=== PATIENT | female | born 1945 | race Caucasian/White ===

== ENCOUNTER 2020-06-11 17:12 | Inpatient (IN) ==
[2020-06-11 17:45] LABS: Nucleated Red Blood Cells 0.2 /100 WBC (0); Red Cell Distribution Width 15.7 % (11.5-14.5)
[2020-06-11 17:47] LABS: Basophils # 0.1 K/mcL (0.0-0.2); Eosinophils # 0.5 K/mcL (0.0-0.6); Eosinophils % 5.2 %; Hematocrit 18.6 % (35.3-44.9); Immature Granulocytes % 0.7 % (0-4); Lymphocytes # 1.5 K/mcL (0.6-4.6); Lymphocytes % 17.1 %; Mean Corpuscular HGB Conc 27.4 g/dL (31.6-35.5); Mean Corpuscular Hemoglobin 28.3 pg (28.0-33.3); Mean Corpuscular Volume 103.3 fL (83.0-100.0); Mean Platelet Volume 10.1 fL (9.4-12.4); Monocytes # 0.8 K/mcL (0.0-1.3); Monocytes % 9.3 %; Neutrophils # 5.7 K/mcL (1.6-8.9); Platelet Count 326 K/mcL (140-400); Segmented Neutrophils % 66.7 %; White Blood Count 8.6 K/mcL (4.3-11.1)
[2020-06-11 18:04] LABS: BUN/Creatinine Ratio 28 (6-26); Blood Urea Nitrogen 24 mg/dL (8-23); Calcium 9.5 mg/dL (8.6-10.3); Carbon Dioxide 22 mEq/L (23-29); Chloride 107 mEq/L (98-107); Glucose 113 mg/dL (70-105); Osmolality,Calculated 289 (280-300); Potassium 4.6 mEq/L (3.5-5.1); Sodium 137 mEq/L (136-145); eGFR For African Americans > 60 (> 60); eGFR For Non-African Americans > 60 (> 60)
[2020-06-11 18:09] LABS: Troponin I 0.04 ng/mL (< 0.04)
[2020-06-11 18:10] LABS: Anisocytosis 1+ (Not Present); Hemoglobin 5.1 g/dL (11.5-15.4); Hypochromasia Present (Not Present); Polychromasia 1+ (Not Present)
[2020-06-11 18:11] LABS: Platelet Estimate Normal (Normal)
[2020-06-11] MEDS ORDERED: 0.9 % Sodium Chloride 1,000 ML ONE (18:26)
[2020-06-11] MEDS ORDERED: *HR* Dextrose 50 % in Water (Vial) 50 ML VIAL IVP PRN (21:20)
[2020-06-11] MEDS ORDERED: D5% in Water 1,000 ML IVC PRN (21:20)
[2020-06-11] MEDS ORDERED: Dextrose Gel 15 GM/37.5 ML TUBE PO PRN ×2 (21:20)
[2020-06-11] MEDS ORDERED: Simethicone 80 MG TAB.CHEW PO PRN (21:23)
[2020-06-11] MEDS ORDERED: Acetaminophen 325 MG TABLET PO PRN (21:24)
[2020-06-11] MEDS ORDERED: Ondansetron 4 MG/2 ML VIAL IVP PRN (21:24)
[2020-06-11] MEDS ORDERED: Naloxone 0.4 MG/ML INJ IVP PRN (21:24)
[2020-06-11] MEDS ORDERED: 0.9 % Sodium Chloride 250 ML ONE (22:41)
[2020-06-11] MEDS: Famotidine 20 MG/2 ML VIAL IVP SCH (23:21)
[2020-06-11] MEDS: Insulin LISPRO 300 UNITS/3 ML VIAL SUBQ SCH (23:24)
[2020-06-11 23:43] LABS: Bilirubin,Urine Negative (Negative); Blood,Urine Negative (Negative); Clarity,Urine Clear (Clear); Color,Urine Yellow (Yellow); Glucose,Urine (UA) Normal (Normal); Ketones,Urine Negative (Negative); Leukocyte Esterase,Urine Moderate (Negative); Mucus,Urine Few per lpf (None-Few); Nitrite,Urine Negative (Negative); PH,Urine 6.5 pH Units (5.0-8.0); Protein,Urine Trace mg/dL (Neg-Trace); Specific Gravity,Urine 1.022 (1.010-1.025); Squamous Epithelial Cell,Urine Few per hpf (None-Few); Urobilinogen,Urine Normal (Normal); WBC,Urine 30-50 per hpf (0-3)
[2020-06-12 01:25] LABS: Hematocrit 24.3 % (35.3-44.9); Mean Corpuscular HGB Conc 29.6 g/dL (31.6-35.5); Mean Corpuscular Hemoglobin 27.7 pg (28.0-33.3); Mean Platelet Volume 10.2 fL (9.4-12.4); Platelet Count 263 K/mcL (140-400); Red Cell Distribution Width 16.7 % (11.5-14.5); White Blood Count 8.3 K/mcL (4.3-11.1)
[2020-06-12 01:27] LABS: Hemoglobin 7.2 g/dL (11.5-15.4); Mean Corpuscular Volume 93.5 fL (83.0-100.0)
[2020-06-12 01:28] LABS: INR 1.2
[2020-06-12 01:31] LABS: Activated Partial Thrombo Time 25.4 Seconds (26.0-36.0)
[2020-06-12] MEDS: Famotidine 20 MG/2 ML VIAL IVP SCH ×3 (01:31→17:25)
[2020-06-12 01:46] LABS: % Iron Saturation 4 % (15-50); Iron 19 mcg/dL (50-170); Transferrin 317 mg/dL (203-362)
[2020-06-12 01:51] LABS: BUN/Creatinine Ratio 30 (6-26); Blood Urea Nitrogen 21 mg/dL (8-23); Calcium 9.1 mg/dL (8.6-10.3); Carbon Dioxide 20 mEq/L (23-29); Chloride 109 mEq/L (98-107); Chol/HDL Ratio 2.2 (0-4.9); Cholesterol 84 mg/dL (< 200); Glucose 85 mg/dL (70-105); HDL Cholesterol 38 mg/dL (40-59); LDL Cholesterol,Calculated 23 mg/dL (< 100); Osmolality,Calculated 288 (280-300); Potassium 4.2 mEq/L (3.5-5.1); Sodium 138 mEq/L (136-145); Triglycerides 114 mg/dL (< 150); Troponin I 0.04 ng/mL (< 0.04); eGFR For African Americans > 60 (> 60); eGFR For Non-African Americans > 60 (> 60)
[2020-06-12 02:04] LABS: Ferritin 19 ng/mL (10-120)
[2020-06-12 02:10] LABS: Folate 18.1 ng/mL (3.0-16.0)
[2020-06-12] MEDS ORDERED: Furosemide 20 MG TABLET PO PRN (08:32)
[2020-06-12] MEDS ORDERED: Iron Sucrose Complex 400 MG in 0.9 % Sodium Chloride 250 ML IVPB ONE (08:33)
[2020-06-12 08:38] LABS: Estimated Average Glucose 88 mg/dl; Hemoglobin A1C 4.7 %
[2020-06-12] MEDS ORDERED: WHEAT DEXTRIN PO SCH (09:00)
[2020-06-12] MEDS: lisinopriL 5 MG TABLET PO SCH (09:15)
[2020-06-12] MEDS: carvediloL 6.25 MG TABLET PO SCH ×2 (09:15→17:14)
[2020-06-12] MEDS: Aspirin Enteric Coated 81 MG Tablet PO SCH (09:15)
[2020-06-12] MEDS: Insulin LISPRO 300 UNITS/3 ML VIAL SUBQ SCH ×4 (09:16→21:20)
[2020-06-12 09:25] LABS: Hematocrit 26.6 % (35.3-44.9); Hemoglobin 8.1 g/dL (11.5-15.4)
[2020-06-12 10:52] LABS: Immature Reticulocyte % 32.9 % (11.0-38.0); Retculocyte # 0.22 M/mcL (0.05-0.10); Reticulocyte % 8.2 % (1.6-2.8)
[2020-06-12 11:13] LABS: Albumin 3.8 g/dL (3.5-5.7); Albumin/Globulin Ratio 1.8 (1.1-2.2); Bilirubin,Direct 0.3 mg/dL (0.0-0.2); Bilirubin,Indirect 1.2 mg/dL (0.0-1.0); Bilirubin,Total 1.5 mg/dL (0.3-1.0); Globulin 2.1 g/dL (2.4-3.5); Total Protein 5.9 g/dL (6.4-8.9)
[2020-06-12] MEDS: Furosemide 20 MG TABLET PO SCH (12:58)
[2020-06-13 03:25] LABS: Hematocrit 24.7 % (35.3-44.9); Hemoglobin 7.5 g/dL (11.5-15.4); Mean Corpuscular HGB Conc 30.4 g/dL (31.6-35.5); Mean Corpuscular Hemoglobin 28.2 pg (28.0-33.3); Mean Corpuscular Volume 92.9 fL (83.0-100.0); Platelet Count 265 K/mcL (140-400); Red Blood Count 2.66 M/mcL (3.82-4.97); Red Cell Distribution Width 16.8 % (11.5-14.5); White Blood Count 7.8 K/mcL (4.3-11.1)
[2020-06-13] MEDS: Famotidine 20 MG/2 ML VIAL IVP SCH ×2 (05:14→16:55)
[2020-06-13] MEDS: Insulin LISPRO 300 UNITS/3 ML VIAL SUBQ SCH ×3 (07:40→16:47)
[2020-06-13] MEDS: Aspirin Enteric Coated 81 MG Tablet PO SCH (07:43)
[2020-06-13] MEDS: Furosemide 20 MG TABLET PO SCH (07:43)
[2020-06-13] MEDS: carvediloL 6.25 MG TABLET PO SCH ×2 (07:43→16:58)
[2020-06-13] MEDS: lisinopriL 5 MG TABLET PO SCH (07:43)
[2020-06-13] MEDS ORDERED: Cyanocobalamin (B-12) 1,000 MCG TABLET PO SCH (09:00)
[2020-06-13 18:52] VITALS: BP 95/57
[2020-06-13 20:11] LABS: Adenovirus Not Detected (Not Detect); Bordetella Pertussis Not Detected (Not Detect); Chlamydophila pneumoniae Not Detected (Not Detect); Coronavirus 229E Not Detected (Not Detect); Coronavirus HKU1 Not Detected (Not Detect); Coronavirus NL63 Not Detected (Not Detect); Coronavirus OC43 Not Detected (Not Detect); Human Metapneumovirus Not Detected (Not Detect); Human Rhinovirus/Enterovirus Not Detected (Not Detect); Influenza A Subtype 2009 H1 Not Detected (Not Detect); Influenza B Not Detected (Not Detect); Mycoplasma pneumoniae Not Detected (Not Detect); Parainfluenza Virus 1 Not Detected (Not Detect); Parainfluenza Virus 2 Not Detected (Not Detect); Parainfluenza Virus 3 Not Detected (Not Detect); Parainfluenza Virus 4 Not Detected (Not Detect); Respiratory Syncytial Virus Not Detected (Not Detect); SARS-CoV-2 Not Detected (Not Detect)
== END 2020-06-13 19:14 | disposition critical access hospital (66) | DRG 811 ==
LOC: 3ANU 17:12 → EMEROOARM 17:12 → SUATTDRO 20:26 → 3ANU 21:41
PROVIDERS: ADMIT Student in an Organized Health Care Education/Training Program; ATTEND Internal Medicine

== ENCOUNTER 2021-03-06 01:10 | Inpatient (IN) ==
[2021-03-06] MEDS ORDERED: Acetaminophen 325 MG TABLET PO PRN ×2 (03:58→04:15)
[2021-03-06] MEDS ORDERED: Ondansetron 4 MG/2 ML VIAL IVP PRN (03:58)
[2021-03-06] MEDS ORDERED: Naloxone 0.4 MG/ML INJ IVP PRN (03:58)
[2021-03-06] MEDS ORDERED: D5% in Water 1,000 ML IVC PRN (04:08)
[2021-03-06] MEDS ORDERED: *HR* Dextrose 50 % in Water (Syg) 50 ML SYRINGE IVP PRN (04:08)
[2021-03-06] MEDS ORDERED: Dextrose Gel 15 GM/37.5 ML TUBE PO PRN ×2 (04:08)
[2021-03-06] MEDS ORDERED: Furosemide 20 MG TABLET PO PRN (04:17)
[2021-03-06] MEDS ORDERED: polyethylene glycoL 3350 17 GM POWD.PACK PO PRN (04:19)
[2021-03-06 05:09] LABS: Basophils # 0.1 K/mcL (0.0-0.2); Basophils % 1.1 %; Eosinophils # 0.3 K/mcL (0.0-0.6); Eosinophils % 4.8 %; Hematocrit 23.1 % (35.3-44.9); Immature Granulocytes % 0.7 % (0-4); Lymphocytes # 1.2 K/mcL (0.6-4.6); Lymphocytes % 16.3 %; Mean Corpuscular HGB Conc 30.3 g/dL (31.6-35.5); Mean Corpuscular Hemoglobin 28.6 pg (28.0-33.3); Mean Corpuscular Volume 94.3 fL (83.0-100.0); Mean Platelet Volume 10.8 fL (9.4-12.4); Monocytes # 0.5 K/mcL (0.0-1.3); Monocytes % 7.3 %; Nucleated Red Blood Cells 0.3 /100 WBC (0); Platelet Count 219 K/mcL (140-400); Red Blood Count 2.45 M/mcL (3.82-4.97); Red Cell Distribution Width 16.4 % (11.5-14.5); Segmented Neutrophils % 69.8 %; White Blood Count 7.1 K/mcL (4.3-11.1)
[2021-03-06 05:17] LABS: Alanine Aminotransferase 11 Units/L (7-52); Albumin/Globulin Ratio 1.6 (1.1-2.2); Alkaline Phosphatase 42 Units/L (34-104); Aspartate Amino Transferase 16 Units/L (13-39); BUN/Creatinine Ratio 45 (6-26); Bilirubin,Total 0.6 mg/dL (0.3-1.0); Blood Urea Nitrogen 33 mg/dL (8-23); Calcium 9.4 mg/dL (8.6-10.3); Carbon Dioxide 22 mEq/L (23-29); Chloride 108 mEq/L (98-107); Globulin 2.5 g/dL (2.4-3.5); Glucose 95 mg/dL (70-105); Osmolality,Calculated 297 (280-300); Potassium 4.1 mEq/L (3.5-5.1); Sodium 140 mEq/L (136-145); Total Protein 6.5 g/dL (6.4-8.9); eGFR For African Americans > 60 (> 60); eGFR For Non-African Americans > 60 (> 60)
[2021-03-06 05:18] LABS: % Iron Saturation 20 % (15-50); Iron 77 mcg/dL (50-170); Transferrin 279 mg/dL (203-362)
[2021-03-06 05:34] LABS: Ferritin 55 ng/mL (10-120)
[2021-03-06 05:40] LABS: Folate 13.9 ng/mL (3.0-16.0)
[2021-03-06 06:02] LABS: Estimated Average Glucose 126 mg/dl
[2021-03-06 06:19] LABS: Hematocrit 22.9 % (35.3-44.9)
[2021-03-06] MEDS: Insulin LISPRO 300 UNITS/3 ML VIAL SUBQ SCH ×4 (08:30→20:28)
[2021-03-06] MEDS: Sucralfate 1 GM TABLET PO SCH (08:34)
[2021-03-06] MEDS: lisinopriL 5 MG TABLET PO SCH (08:34)
[2021-03-06] MEDS: carvediloL 6.25 MG TABLET PO SCH ×2 (08:34→17:00)
[2021-03-06] MEDS ORDERED: Famotidine 20 MG TABLET PO SCH (09:00)
[2021-03-06] MEDS: Levalbuterol Neb 1.25 MG/3 ML IH SCH ×3 (10:24→22:23)
[2021-03-06] MEDS ORDERED: Cyanocobalamin (B-12) 1,000 MCG/ML VIAL SQ ONE (11:00)
[2021-03-06 13:05] LABS: Hematocrit 21.3 % (35.3-44.9); Hemoglobin 6.7 g/dL (11.5-15.4)
[2021-03-06] MEDS ORDERED: *HR* Propofol 200 MG/20 ML VIAL IVP ONE (14:51)
[2021-03-06] MEDS ORDERED: Lidocaine -MPF 2% 5 ML VIAL ONE (14:51)
[2021-03-06] MEDS: cefTRIAXone 1,000 MG in Water for inj. (sterile) 10 ML IVP SCH (16:59)
[2021-03-06] MEDS: Pantoprazole 40 MG VIAL IVP SCH (17:00)
[2021-03-06] MEDS ORDERED: 0.9 % Sodium Chloride 250 ML ONE (17:06)
[2021-03-06] MEDS ORDERED: cefTRIAXone 2,000 MG in 0.9 % Sodium Chloride Mini Bag 100 ML IVPB SCH (18:00)
[2021-03-06 23:32] LABS: Basophils # 0.1 K/mcL (0.0-0.2); Basophils % 0.9 %; Eosinophils # 0.3 K/mcL (0.0-0.6); Hematocrit 26.3 % (35.3-44.9); Hemoglobin 8.2 g/dL (11.5-15.4); Immature Granulocytes % 0.6 % (0-4); Lymphocytes # 1.3 K/mcL (0.6-4.6); Lymphocytes % 15.6 %; Mean Corpuscular HGB Conc 31.2 g/dL (31.6-35.5); Mean Corpuscular Hemoglobin 29.2 pg (28.0-33.3); Mean Corpuscular Volume 93.6 fL (83.0-100.0); Mean Platelet Volume 10.2 fL (9.4-12.4); Monocytes # 0.9 K/mcL (0.0-1.3); Monocytes % 11.1 %; Neutrophils # 5.8 K/mcL (1.6-8.9); Nucleated Red Blood Cells 0.4 /100 WBC (0); Platelet Count 218 K/mcL (140-400); Red Blood Count 2.81 M/mcL (3.82-4.97); Red Cell Distribution Width 16.6 % (11.5-14.5); Segmented Neutrophils % 67.8 %; White Blood Count 8.5 K/mcL (4.3-11.1)
[2021-03-07 02:42] LABS: Hematocrit 25.3 % (35.3-44.9); Hemoglobin 8.2 g/dL (11.5-15.4); Mean Corpuscular HGB Conc 32.4 g/dL (31.6-35.5); Mean Corpuscular Volume 92.7 fL (83.0-100.0); Mean Platelet Volume 10.6 fL (9.4-12.4); Platelet Count 234 K/mcL (140-400); Red Blood Count 2.73 M/mcL (3.82-4.97); Red Cell Distribution Width 17.1 % (11.5-14.5); White Blood Count 9.1 K/mcL (4.3-11.1)
[2021-03-07 02:53] LABS: BUN/Creatinine Ratio 35 (6-26); Blood Urea Nitrogen 28 mg/dL (8-23); Calcium 9.2 mg/dL (8.6-10.3); Carbon Dioxide 23 mEq/L (23-29); Chloride 104 mEq/L (98-107); Glucose 105 mg/dL (70-105); Osmolality,Calculated 286 (280-300); Potassium 4.4 mEq/L (3.5-5.1); Sodium 135 mEq/L (136-145); eGFR For African Americans > 60 (> 60); eGFR For Non-African Americans > 60 (> 60)
[2021-03-07] MEDS: Levalbuterol Neb 1.25 MG/3 ML IH SCH ×4 (04:31→20:57)
[2021-03-07] MEDS: Pantoprazole 40 MG VIAL IVP SCH ×2 (05:31→18:26)
[2021-03-07] MEDS: Insulin LISPRO 300 UNITS/3 ML VIAL SUBQ SCH ×4 (08:32→20:40)
[2021-03-07] MEDS: lisinopriL 5 MG TABLET PO SCH (08:49)
[2021-03-07] MEDS: carvediloL 6.25 MG TABLET PO SCH ×2 (08:49→18:25)
[2021-03-07] MEDS: Sucralfate 1 GM TABLET PO SCH (08:49)
[2021-03-07] MEDS: cefTRIAXone 1,000 MG in Water for inj. (sterile) 10 ML IVP SCH (18:26)
[2021-03-08 01:10] LABS: Hematocrit 24.3 % (35.3-44.9); Hemoglobin 7.5 g/dL (11.5-15.4); Mean Corpuscular HGB Conc 30.9 g/dL (31.6-35.5); Mean Corpuscular Hemoglobin 29.4 pg (28.0-33.3); Mean Corpuscular Volume 95.3 fL (83.0-100.0); Mean Platelet Volume 10.5 fL (9.4-12.4); Platelet Count 221 K/mcL (140-400); Red Blood Count 2.55 M/mcL (3.82-4.97); Red Cell Distribution Width 17.6 % (11.5-14.5); White Blood Count 8.3 K/mcL (4.3-11.1)
[2021-03-08 01:32] LABS: BUN/Creatinine Ratio 25 (6-26); Blood Urea Nitrogen 21 mg/dL (8-23); Calcium 8.6 mg/dL (8.6-10.3); Carbon Dioxide 25 mEq/L (23-29); Chloride 105 mEq/L (98-107); Glucose 118 mg/dL (70-105); Osmolality,Calculated 286 (280-300); Potassium 4.2 mEq/L (3.5-5.1); Sodium 136 mEq/L (136-145); eGFR For African Americans > 60 (> 60); eGFR For Non-African Americans > 60 (> 60)
[2021-03-08] MEDS: Levalbuterol Neb 1.25 MG/3 ML IH SCH ×2 (04:40→07:38)
[2021-03-08] MEDS: Pantoprazole 40 MG VIAL IVP SCH (06:01)
[2021-03-08] MEDS: Sucralfate 1 GM TABLET PO SCH (07:57)
[2021-03-08] MEDS: carvediloL 6.25 MG TABLET PO SCH (07:57)
[2021-03-08] MEDS: lisinopriL 5 MG TABLET PO SCH (07:57)
[2021-03-08 10:16] VITALS: BP 160/72; PULSE 83; TEMP 98.3; O2SAT 93
[2021-03-08] MEDS ORDERED: Pantoprazole 40 MG VIAL IVP SCH (18:00)
== END 2021-03-08 14:20 | disposition home health service (06) | DRG 812 ==
LOC: 3ANU → SUATTDRO 02:53
PROVIDERS: ADMIT Internal Medicine; ATTEND Hospitalist

== ENCOUNTER 2021-07-17 01:17 | Inpatient (IN) ==
[2021-07-17] MEDS ORDERED: Furosemide 20 MG/2 ML VIAL IVP ONE (01:23)
[2021-07-17 02:30] LABS: Basophils # 0.1 K/mcL (0.0-0.2); Basophils % 0.8 %; Eosinophils # 0.4 K/mcL (0.0-0.6); Eosinophils % 3.2 %; Hematocrit 26.4 % (35.3-44.9); Hemoglobin 8.2 g/dL (11.5-15.4); Immature Granulocytes % 0.6 % (0-4); Lymphocytes # 1.4 K/mcL (0.6-4.6); Lymphocytes % 12.7 %; Mean Corpuscular HGB Conc 31.1 g/dL (31.6-35.5); Mean Corpuscular Volume 96.7 fL (83.0-100.0); Mean Platelet Volume 10.2 fL (9.4-12.4); Monocytes # 1.3 K/mcL (0.0-1.3); Monocytes % 11.4 %; Neutrophils # 7.9 K/mcL (1.6-8.9); Platelet Count 325 K/mcL (140-400); Red Blood Count 2.73 M/mcL (3.82-4.97); Red Cell Distribution Width 17.5 % (11.5-14.5); Segmented Neutrophils % 71.3 %; White Blood Count 11.1 K/mcL (4.3-11.1)
[2021-07-17 02:40] LABS: INR 1.4; Prothrombin Time 15.9 Seconds (9.4-12.1)
[2021-07-17 02:43] LABS: Activated Partial Thrombo Time 36.2 Seconds (26.0-36.0)
[2021-07-17 02:50] LABS: Bacteria,Urine Few per hpf (None-Few); Bilirubin,Urine Negative (Negative); Blood,Urine Large (Negative); Clarity,Urine Turbid (Clear); Color,Urine Yellow (Yellow); Glucose,Urine (UA) Normal (Normal); Hyaline Casts,Urine Many per lpf (None Seen); Ketones,Urine Negative (Negative); Leukocyte Esterase,Urine Trace (Negative); Mucus,Urine Few per lpf (None-Few); Nitrite,Urine Negative (Negative); Protein,Urine >=300 mg/dL (Neg-Trace); RBC,Urine TNTC per hpf (0-3); Specific Gravity,Urine 1.015 (1.010-1.025); Squamous Epithelial Cell,Urine Few per hpf (None-Few); Urobilinogen,Urine Normal (Normal); WBC,Urine 15-30 per hpf (0-3)
[2021-07-17] MEDS ORDERED: cefTRIAXone 1,000 MG in Water for inj. (sterile) 10 ML IVP ONE (02:52)
[2021-07-17 03:01] LABS: BUN/Creatinine Ratio 37 (6-26); Blood Urea Nitrogen 39 mg/dL (8-23); Calcium 8.5 mg/dL (8.6-10.3); Carbon Dioxide 21 mEq/L (23-29); Chloride 102 mEq/L (98-107); Glucose 126 mg/dL (70-105); Lipase 24 Units/L (11-82); Osmolality,Calculated 287 (280-300); Potassium 4.6 mEq/L (3.5-5.1); Sodium 133 mEq/L (136-145); Troponin I 0.06 ng/mL (< 0.04); eGFR For African Americans > 60 (> 60); eGFR For Non-African Americans 51 (> 60)
[2021-07-17] MEDS ORDERED: Ibuprofen 400 MG TABLET PO PRN (04:14)
[2021-07-17] MEDS ORDERED: Ondansetron ODT 4 MG TAB.RAPDIS SL PRN (04:14)
[2021-07-17] MEDS ORDERED: Naloxone 0.4 MG/ML INJ IVP PRN (04:14)
[2021-07-17] MEDS ORDERED: Acetaminophen 325 MG TABLET PO PRN (04:14)
[2021-07-17] MEDS ORDERED: Nitroglycerin 0.4 MG TAB.SUBL SL STA (04:25)
[2021-07-17] MEDS: *HR* Enoxaparin 40 MG/0.4 ML SYRINGE SQ SCH (06:36)
[2021-07-17 07:49] LABS: % Iron Saturation 11 % (15-50); Iron 32 mcg/dL (50-170); Transferrin 209 mg/dL (203-362)
[2021-07-17] MEDS ORDERED: Furosemide 20 MG/2 ML VIAL IVP SCH (08:00)
[2021-07-17 08:06] LABS: Ferritin 443 ng/mL (10-120)
[2021-07-17 08:41] LABS: Folate > 22.3 ng/mL (3.0-16.0); Vitamin B12 714 pg/mL (250-1100)
[2021-07-17] MEDS: lisinopriL 5 MG TABLET PO SCH (08:52)
[2021-07-17] MEDS: Aspirin Enteric Coated 81 MG Tablet PO SCH (08:52)
[2021-07-17] MEDS: Famotidine 20 MG TABLET PO SCH (08:52)
[2021-07-17] MEDS: carvediloL 6.25 MG TABLET PO SCH ×2 (08:52→20:31)
[2021-07-17] MEDS: Furosemide 40 MG/4 ML VIAL IV SCH ×2 (08:52→16:52)
[2021-07-17 09:28] LABS: Sodium, Urine 50.6 mEq/L
[2021-07-17] MEDS: FluocinoNIDE 0.05% CRM 15 GM TUBE TP SCH ×2 (09:34→20:34)
[2021-07-18 01:21] LABS: Calcium 8.4 mg/dL (8.6-10.3); Potassium 4.4 mEq/L (3.5-5.1)
[2021-07-18] MEDS: *HR* Enoxaparin 40 MG/0.4 ML SYRINGE SQ SCH (06:36)
[2021-07-18] MEDS ORDERED: Furosemide 40 MG/4 ML VIAL IV SCH (09:00)
[2021-07-18] MEDS: cefTRIAXone 1,000 MG in 0.9 % Sodium Chloride Mini Bag 100 ML IVPB SCH (09:00)
[2021-07-18] MEDS: carvediloL 6.25 MG TABLET PO SCH ×2 (09:04→16:51)
[2021-07-18] MEDS: Aspirin Enteric Coated 81 MG Tablet PO SCH (09:04)
[2021-07-18] MEDS: lisinopriL 5 MG TABLET PO SCH (09:04)
[2021-07-18] MEDS: Famotidine 20 MG TABLET PO SCH (09:04)
[2021-07-18] MEDS: FluocinoNIDE 0.05% CRM 15 GM TUBE TP SCH ×2 (09:09→20:32)
[2021-07-18] MEDS: Ipratropium/Albuterol Neb 3 ML IH PRN (10:59)
[2021-07-18] MEDS ORDERED: Perflutren Lipid Microsphere 1.3 ML in 0.9 % Sodium Chloride 8.7 ML IVP PRN (12:07)
[2021-07-18] MEDS ORDERED: *HR* Labetalol 20 MG/4 ML SYRINGE IVP PRN (17:01)
[2021-07-18] MEDS: Gabapentin 100 MG CAPSULE PO SCH (20:32)
[2021-07-19 05:01] LABS: Basophils # 0.1 K/mcL (0.0-0.2); Basophils % 0.9 %; Eosinophils # 0.3 K/mcL (0.0-0.6); Eosinophils % 3.4 %; Hematocrit 25.6 % (35.3-44.9); Hemoglobin 7.5 g/dL (11.5-15.4); Immature Granulocytes % 0.6 % (0-4); Lymphocytes # 1.4 K/mcL (0.6-4.6); Lymphocytes % 14.3 %; Mean Corpuscular HGB Conc 29.3 g/dL (31.6-35.5); Mean Corpuscular Hemoglobin 28.4 pg (28.0-33.3); Mean Platelet Volume 10.2 fL (9.4-12.4); Monocytes # 1.1 K/mcL (0.0-1.3); Monocytes % 10.8 %; Neutrophils # 6.8 K/mcL (1.6-8.9); Nucleated Red Blood Cells 0.2 /100 WBC (0); Platelet Count 317 K/mcL (140-400); Red Blood Count 2.64 M/mcL (3.82-4.97); Red Cell Distribution Width 17.7 % (11.5-14.5); White Blood Count 9.7 K/mcL (4.3-11.1)
[2021-07-19 05:54] LABS: Complement C3 133 mg/dL (87-200)
[2021-07-19 05:56] LABS: Albumin 2.9 g/dL (3.5-5.7); Bilirubin,Direct 0.1 mg/dL (0.0-0.2); Bilirubin,Indirect 0.5 mg/dL (0.0-1.0); Bilirubin,Total 0.6 mg/dL (0.3-1.0); Calcium 8.3 mg/dL (8.6-10.3); Globulin 2.8 g/dL (2.4-3.5); Magnesium 1.8 mg/dL (1.6-2.6); Potassium 5.1 mEq/L (3.5-5.1); Total Protein 5.7 g/dL (6.4-8.9)
[2021-07-19] MEDS: *HR* Enoxaparin 40 MG/0.4 ML SYRINGE SQ SCH (06:07)
[2021-07-19 06:26] LABS: Hepatitis B Surface Antigen Nonreactive (Nonreactive)
[2021-07-19 06:55] LABS: Hepatitis C Virus Antibody Nonreactive (Nonreactive)
[2021-07-19 06:56] LABS: Hepatitis A Antibody IgM Nonreactive (Nonreactive)
[2021-07-19] MEDS: lisinopriL 5 MG TABLET PO SCH (07:44)
[2021-07-19] MEDS: Aspirin Enteric Coated 81 MG Tablet PO SCH (07:44)
[2021-07-19] MEDS: Famotidine 20 MG TABLET PO SCH ×2 (07:44→19:41)
[2021-07-19] MEDS: carvediloL 6.25 MG TABLET PO SCH ×2 (07:44→16:50)
[2021-07-19] MEDS: FluocinoNIDE 0.05% CRM 15 GM TUBE TP SCH ×2 (07:45→19:43)
[2021-07-19] MEDS: cefTRIAXone 1,000 MG in 0.9 % Sodium Chloride Mini Bag 100 ML IVPB SCH (07:45)
[2021-07-19] MEDS: Ipratropium/Albuterol Neb 3 ML IH PRN (10:51)
[2021-07-19] MEDS: Gabapentin 100 MG CAPSULE PO SCH (19:41)
[2021-07-20 01:11] LABS: Basophils # 0.1 K/mcL (0.0-0.2); Basophils % 0.8 %; Eosinophils # 0.3 K/mcL (0.0-0.6); Eosinophils % 3.4 %; Hematocrit 24.9 % (35.3-44.9); Hemoglobin 7.6 g/dL (11.5-15.4); Immature Granulocytes % 0.5 % (0-4); Lymphocytes # 1.2 K/mcL (0.6-4.6); Lymphocytes % 12.8 %; Mean Corpuscular HGB Conc 30.5 g/dL (31.6-35.5); Mean Corpuscular Hemoglobin 29.5 pg (28.0-33.3); Mean Corpuscular Volume 96.5 fL (83.0-100.0); Mean Platelet Volume 9.9 fL (9.4-12.4); Monocytes # 0.9 K/mcL (0.0-1.3); Monocytes % 9.5 %; Neutrophils # 6.8 K/mcL (1.6-8.9); Platelet Count 286 K/mcL (140-400); Red Blood Count 2.58 M/mcL (3.82-4.97); Red Cell Distribution Width 17.6 % (11.5-14.5); White Blood Count 9.3 K/mcL (4.3-11.1)
[2021-07-20 01:30] LABS: Magnesium 1.8 mg/dL (1.6-2.6); Potassium 4.7 mEq/L (3.5-5.1)
[2021-07-20] MEDS: *HR* Enoxaparin 40 MG/0.4 ML SYRINGE SQ SCH (04:24)
[2021-07-20] MEDS: Famotidine 20 MG TABLET PO SCH ×2 (08:19→21:51)
[2021-07-20] MEDS: carvediloL 6.25 MG TABLET PO SCH ×2 (08:19→16:45)
[2021-07-20] MEDS: Aspirin Enteric Coated 81 MG Tablet PO SCH (08:19)
[2021-07-20] MEDS: Pantoprazole 40 MG VIAL IVP SCH (08:24)
[2021-07-20] MEDS: FluocinoNIDE 0.05% CRM 15 GM TUBE TP SCH ×2 (08:25→21:52)
[2021-07-20] MEDS: Gabapentin 100 MG CAPSULE PO SCH (21:51)
[2021-07-20] MEDS: Ipratropium/Albuterol Neb 3 ML IH PRN (22:12)
[2021-07-21 01:54] LABS: Basophils # 0.1 K/mcL (0.0-0.2); Basophils % 0.6 %; Eosinophils # 0.3 K/mcL (0.0-0.6); Eosinophils % 2.9 %; Hematocrit 24.9 % (35.3-44.9); Hemoglobin 7.6 g/dL (11.5-15.4); Immature Granulocytes % 0.6 % (0-4); Lymphocytes # 1.1 K/mcL (0.6-4.6); Lymphocytes % 10.9 %; Mean Corpuscular HGB Conc 30.5 g/dL (31.6-35.5); Mean Corpuscular Hemoglobin 29.2 pg (28.0-33.3); Mean Corpuscular Volume 95.8 fL (83.0-100.0); Mean Platelet Volume 10.1 fL (9.4-12.4); Monocytes # 0.9 K/mcL (0.0-1.3); Monocytes % 8.9 %; Neutrophils # 7.7 K/mcL (1.6-8.9); Platelet Count 299 K/mcL (140-400); Red Cell Distribution Width 17.2 % (11.5-14.5); Segmented Neutrophils % 76.1 %; White Blood Count 10.1 K/mcL (4.3-11.1)
[2021-07-21 02:13] LABS: Calcium 8.2 mg/dL (8.6-10.3); Magnesium 1.7 mg/dL (1.6-2.6)
[2021-07-21] MEDS: *HR* Enoxaparin 40 MG/0.4 ML SYRINGE SQ SCH (06:36)
[2021-07-21] MEDS: Ipratropium/Albuterol Neb 3 ML IH PRN ×2 (07:17→19:39)
[2021-07-21] MEDS: Famotidine 20 MG TABLET PO SCH ×2 (08:58→20:43)
[2021-07-21] MEDS: Isosorbide MONOnitrate (24 HR) 30 MG TAB.ER.24H PO SCH (08:58)
[2021-07-21] MEDS: carvediloL 6.25 MG TABLET PO SCH ×2 (08:59→17:04)
[2021-07-21] MEDS: Pantoprazole 40 MG VIAL IVP SCH (08:59)
[2021-07-21] MEDS: Aspirin Enteric Coated 81 MG Tablet PO SCH (08:59)
[2021-07-21] MEDS: FluocinoNIDE 0.05% CRM 15 GM TUBE TP SCH ×2 (09:02→20:43)
[2021-07-21] MEDS: lisinopriL 5 MG TABLET PO SCH (09:09)
[2021-07-21 10:34] LABS: ANA IgG by ELISA NONE DETECTED (None Detected); Serine Protease-3 Antibody 0 AU/mL (0-19)
[2021-07-21] MEDS: Gabapentin 100 MG CAPSULE PO SCH (20:43)
[2021-07-22 05:56] LABS: Basophils # 0.1 K/mcL (0.0-0.2); Basophils % 0.8 %; Eosinophils # 0.3 K/mcL (0.0-0.6); Eosinophils % 3.4 %; Hematocrit 24.4 % (35.3-44.9); Hemoglobin 7.2 g/dL (11.5-15.4); Immature Granulocytes % 0.7 % (0-4); Lymphocytes # 1.3 K/mcL (0.6-4.6); Lymphocytes % 13.1 %; Mean Corpuscular HGB Conc 29.5 g/dL (31.6-35.5); Mean Corpuscular Hemoglobin 28.5 pg (28.0-33.3); Mean Corpuscular Volume 96.4 fL (83.0-100.0); Mean Platelet Volume 10.2 fL (9.4-12.4); Monocytes % 9.8 %; Neutrophils # 7.2 K/mcL (1.6-8.9); Platelet Count 288 K/mcL (140-400); Red Blood Count 2.53 M/mcL (3.82-4.97); Red Cell Distribution Width 17.1 % (11.5-14.5); Segmented Neutrophils % 72.2 %
[2021-07-22 06:07] LABS: Calcium 8.2 mg/dL (8.6-10.3); Magnesium 1.8 mg/dL (1.6-2.6); Potassium 5.7 mEq/L (3.5-5.1)
[2021-07-22] MEDS: Ipratropium/Albuterol Neb 3 ML IH PRN ×2 (07:42→20:23)
[2021-07-22] MEDS: Pantoprazole 40 MG VIAL IVP SCH (08:11)
[2021-07-22] MEDS: carvediloL 6.25 MG TABLET PO SCH ×2 (08:11→16:31)
[2021-07-22] MEDS: FluocinoNIDE 0.05% CRM 15 GM TUBE TP SCH ×2 (08:11→22:06)
[2021-07-22] MEDS: Isosorbide MONOnitrate (24 HR) 30 MG TAB.ER.24H PO SCH (08:12)
[2021-07-22] MEDS: Aspirin Enteric Coated 81 MG Tablet PO SCH (08:12)
[2021-07-22] MEDS: hydrALAZINE 10 MG TABLET PO SCH ×3 (08:12→22:06)
[2021-07-22] MEDS: Famotidine 20 MG TABLET PO SCH ×2 (08:12→22:06)
[2021-07-22] MEDS: Gabapentin 100 MG CAPSULE PO SCH (22:06)
[2021-07-23 02:10] LABS: Basophils # 0.1 K/mcL (0.0-0.2); Basophils % 0.8 %; Eosinophils # 0.4 K/mcL (0.0-0.6); Eosinophils % 3.8 %; Hematocrit 24.3 % (35.3-44.9); Hemoglobin 7.4 g/dL (11.5-15.4); Immature Granulocytes % 0.5 % (0-4); Lymphocytes # 1.2 K/mcL (0.6-4.6); Lymphocytes % 11.5 %; Mean Corpuscular HGB Conc 30.5 g/dL (31.6-35.5); Mean Corpuscular Hemoglobin 28.9 pg (28.0-33.3); Mean Corpuscular Volume 94.9 fL (83.0-100.0); Mean Platelet Volume 10.1 fL (9.4-12.4); Monocytes # 1.1 K/mcL (0.0-1.3); Monocytes % 10.2 %; Neutrophils # 7.8 K/mcL (1.6-8.9); Platelet Count 304 K/mcL (140-400); Red Blood Count 2.56 M/mcL (3.82-4.97); Red Cell Distribution Width 16.9 % (11.5-14.5); Segmented Neutrophils % 73.2 %; White Blood Count 10.6 K/mcL (4.3-11.1)
[2021-07-23 02:32] LABS: Calcium 7.9 mg/dL (8.6-10.3); Magnesium 1.7 mg/dL (1.6-2.6); Potassium 4.6 mEq/L (3.5-5.1)
[2021-07-23] MEDS: carvediloL 6.25 MG TABLET PO SCH (08:23)
[2021-07-23] MEDS: hydrALAZINE 10 MG TABLET PO SCH (08:24)
[2021-07-23] MEDS: Famotidine 20 MG TABLET PO SCH (08:24)
[2021-07-23] MEDS: FluocinoNIDE 0.05% CRM 15 GM TUBE TP SCH (08:24)
[2021-07-23] MEDS: Aspirin Enteric Coated 81 MG Tablet PO SCH (08:24)
[2021-07-23] MEDS: Pantoprazole 40 MG VIAL IVP SCH (08:25)
[2021-07-23] MEDS ORDERED: Isosorbide MONOnitrate (24 HR) 30 MG TAB.ER.24H PO SCH (09:00)
[2021-07-23 11:07] VITALS: BP 142/70; PULSE 77; TEMP 97.6; O2SAT 94
[2021-07-24] MEDS ORDERED: Famotidine 20 MG TABLET PO SCH (07:30)
== END 2021-07-23 12:45 | DRG 280 ==
LOC: EMEROOARM 01:17 → 2ANU 01:17 → SUATTDRO 03:44 → 2ANU 04:38
PROVIDERS: ADMIT Family Medicine; ATTEND Pharmacist

== ENCOUNTER 2021-07-27 06:47 | Inpatient (IN) ==
[2021-07-27] MEDS ORDERED: Naloxone 0.4 MG/ML INJ IVP PRN (10:19)
[2021-07-27] MEDS: carvediloL 6.25 MG TABLET PO SCH ×2 (10:52→16:41)
[2021-07-27] MEDS ORDERED: Dextrose 4 GM Chewable Tablets PO PRN ×2 (10:58)
[2021-07-27] MEDS ORDERED: *HR* Dextrose 50 % in Water (Syg) 50 ML SYRINGE IVP PRN (10:58)
[2021-07-27] MEDS ORDERED: D5% in Water 1,000 ML IVC PRN (10:58)
[2021-07-27 12:19] LABS: Hematocrit 27.1 % (35.3-44.9); Mean Corpuscular HGB Conc 29.5 g/dL (31.6-35.5); Mean Corpuscular Hemoglobin 28.3 pg (28.0-33.3); Mean Corpuscular Volume 95.8 fL (83.0-100.0); Platelet Count 278 K/mcL (140-400); Red Blood Count 2.83 M/mcL (3.82-4.97); Red Cell Distribution Width 16.4 % (11.5-14.5); White Blood Count 9.5 K/mcL (4.3-11.1)
[2021-07-27] MEDS: Insulin LISPRO 300 UNITS/3 ML VIAL SUBQ SCH ×3 (12:35→20:35)
[2021-07-27 12:38] LABS: Calcium 8.9 mg/dL (8.6-10.3); Potassium 5.1 mEq/L (3.5-5.1)
[2021-07-27 12:40] LABS: Magnesium 1.7 mg/dL (1.6-2.6); Phosphorous 5.1 mg/dL (2.7-4.5)
[2021-07-27 13:03] LABS: Troponin I 0.05 ng/mL (< 0.04)
[2021-07-27] MEDS ORDERED: Acetaminophen 325 MG TABLET PO ONE (20:02)
[2021-07-27] MEDS: Furosemide 20 MG/2 ML VIAL IVP SCH (20:37)
[2021-07-27] MEDS: Albuterol 2.5 MG/3 ML NEBULIZER IH PRN (21:11)
[2021-07-28 02:36] LABS: Bilirubin,Urine Negative (Negative); Blood,Urine Large (Negative); Clarity,Urine Clear (Clear); Color,Urine Colorless (Yellow); Glucose,Urine (UA) Normal (Normal); Ketones,Urine Negative (Negative); Leukocyte Esterase,Urine Negative (Negative); Nitrite,Urine Negative (Negative); Protein,Urine 200 mg/dL (Neg-Trace); RBC,Urine TNTC per hpf (0-3); Specific Gravity,Urine 1.013 (1.010-1.025); Squamous Epithelial Cell,Urine Few per hpf (None-Few); Urobilinogen,Urine Normal (Normal)
[2021-07-28 06:07] LABS: Hematocrit 26.4 % (35.3-44.9); Hemoglobin 8.1 g/dL (11.5-15.4); Mean Corpuscular HGB Conc 30.7 g/dL (31.6-35.5); Mean Corpuscular Hemoglobin 29.3 pg (28.0-33.3); Mean Corpuscular Volume 95.7 fL (83.0-100.0); Platelet Count 311 K/mcL (140-400); Red Blood Count 2.76 M/mcL (3.82-4.97); White Blood Count 9.3 K/mcL (4.3-11.1)
[2021-07-28 06:24] LABS: Albumin 3.2 g/dL (3.5-5.7); Albumin/Globulin Ratio 1.2 (1.1-2.2); Bilirubin,Total 1.2 mg/dL (0.3-1.0); Calcium 8.8 mg/dL (8.6-10.3); Globulin 2.7 g/dL (2.4-3.5); Potassium 4.9 mEq/L (3.5-5.1); Total Protein 5.9 g/dL (6.4-8.9)
[2021-07-28] MEDS: carvediloL 6.25 MG TABLET PO SCH ×2 (08:28→16:33)
[2021-07-28] MEDS: Furosemide 20 MG/2 ML VIAL IVP SCH ×2 (08:28→21:40)
[2021-07-28] MEDS: Insulin LISPRO 300 UNITS/3 ML VIAL SUBQ SCH ×4 (08:29→21:41)
[2021-07-28] MEDS: Isosorbide MONOnitrate (24 HR) 60 MG TAB.ER.24H PO SCH (11:22)
[2021-07-28] MEDS: Albuterol 2.5 MG/3 ML NEBULIZER IH PRN (11:26)
[2021-07-28 12:07] LABS: % Iron Saturation 9 % (15-50); Iron 31 mcg/dL (50-170); Transferrin 237 mg/dL (203-362)
[2021-07-28] MEDS: hydrALAZINE 10 MG TABLET PO SCH ×2 (15:12→21:41)
[2021-07-28] MEDS: Gabapentin 100 MG CAPSULE PO SCH (21:41)
[2021-07-29 04:50] LABS: Basophils # 0.1 K/mcL (0.0-0.2); Basophils % 0.8 %; Eosinophils # 0.7 K/mcL (0.0-0.6); Eosinophils % 6.7 %; Hematocrit 26.7 % (35.3-44.9); Immature Granulocytes % 0.6 % (0-4); Lymphocytes # 1.6 K/mcL (0.6-4.6); Lymphocytes % 14.8 %; Mean Corpuscular Hemoglobin 29.2 pg (28.0-33.3); Mean Corpuscular Volume 97.4 fL (83.0-100.0); Mean Platelet Volume 10.1 fL (9.4-12.4); Monocytes % 9.3 %; Neutrophils # 7.2 K/mcL (1.6-8.9); Platelet Count 319 K/mcL (140-400); Red Blood Count 2.74 M/mcL (3.82-4.97); Red Cell Distribution Width 17.1 % (11.5-14.5); Segmented Neutrophils % 67.8 %; White Blood Count 10.6 K/mcL (4.3-11.1)
[2021-07-29 04:58] LABS: Calcium 8.9 mg/dL (8.6-10.3); Magnesium 1.6 mg/dL (1.6-2.6); Potassium 4.9 mEq/L (3.5-5.1)
[2021-07-29] MEDS: Insulin LISPRO 300 UNITS/3 ML VIAL SUBQ SCH ×4 (09:02→20:29)
[2021-07-29] MEDS: Cholecalciferol (D-3) 1,000 UNIT (25MCG) TABLET PO SCH (09:11)
[2021-07-29] MEDS: hydrALAZINE 10 MG TABLET PO SCH ×3 (09:12→20:28)
[2021-07-29] MEDS: carvediloL 6.25 MG TABLET PO SCH ×2 (09:12→16:29)
[2021-07-29] MEDS: Multivit/Ca/Min/Fe/FA 1 TAB TABLET PO SCH (09:12)
[2021-07-29] MEDS: Isosorbide MONOnitrate (24 HR) 60 MG TAB.ER.24H PO SCH (09:12)
[2021-07-29] MEDS: Furosemide 20 MG/2 ML VIAL IVP SCH ×2 (09:12→20:28)
[2021-07-29] MEDS: Aspirin Enteric Coated 81 MG Tablet PO SCH (09:12)
[2021-07-29] MEDS: cefTRIAXone 1,000 MG in 0.9 % Sodium Chloride 10 ML IVP SCH (11:39)
[2021-07-29] MEDS: Gabapentin 100 MG CAPSULE PO SCH (20:28)
[2021-07-30 01:47] LABS: Calcium 8.7 mg/dL (8.6-10.3); Magnesium 1.6 mg/dL (1.6-2.6); Potassium 5.5 mEq/L (3.5-5.1)
[2021-07-30 02:13] LABS: Basophils # 0.1 K/mcL (0.0-0.2); Basophils % 0.8 %; Eosinophils # 0.8 K/mcL (0.0-0.6); Eosinophils % 7.8 %; Hematocrit 26.6 % (35.3-44.9); Hemoglobin 7.9 g/dL (11.5-15.4); Immature Granulocytes % 0.4 % (0-4); Lymphocytes # 1.3 K/mcL (0.6-4.6); Lymphocytes % 13.6 %; Mean Corpuscular HGB Conc 29.7 g/dL (31.6-35.5); Mean Corpuscular Hemoglobin 28.9 pg (28.0-33.3); Mean Corpuscular Volume 97.4 fL (83.0-100.0); Mean Platelet Volume 10.2 fL (9.4-12.4); Monocytes # 0.9 K/mcL (0.0-1.3); Monocytes % 9.6 %; Neutrophils # 6.5 K/mcL (1.6-8.9); Platelet Count 318 K/mcL (140-400); Red Blood Count 2.73 M/mcL (3.82-4.97); Red Cell Distribution Width 16.9 % (11.5-14.5); Segmented Neutrophils % 67.8 %; White Blood Count 9.6 K/mcL (4.3-11.1)
[2021-07-30] MEDS: Aspirin Enteric Coated 81 MG Tablet PO SCH (08:11)
[2021-07-30] MEDS: carvediloL 6.25 MG TABLET PO SCH ×2 (08:11→16:38)
[2021-07-30] MEDS: Multivit/Ca/Min/Fe/FA 1 TAB TABLET PO SCH (08:11)
[2021-07-30] MEDS: Cholecalciferol (D-3) 1,000 UNIT (25MCG) TABLET PO SCH (08:11)
[2021-07-30] MEDS: Insulin LISPRO 300 UNITS/3 ML VIAL SUBQ SCH ×4 (08:11→20:36)
[2021-07-30] MEDS: hydrALAZINE 10 MG TABLET PO SCH ×3 (08:11→21:31)
[2021-07-30] MEDS: Isosorbide MONOnitrate (24 HR) 60 MG TAB.ER.24H PO SCH (08:11)
[2021-07-30] MEDS: cefTRIAXone 1,000 MG in 0.9 % Sodium Chloride 10 ML IVP SCH (08:17)
[2021-07-30] MEDS: Furosemide 20 MG/2 ML VIAL IVP SCH ×2 (08:44→21:31)
[2021-07-30] MEDS ORDERED: SODIUM ZIRCONIUM CYCLOSILICATE 5 GM POWD.PACK PO SCH (11:15)
[2021-07-30] MEDS: Amoxicillin 500 MG CAPSULE PO SCH ×2 (12:12→21:32)
[2021-07-30] MEDS: Gabapentin 100 MG CAPSULE PO SCH (21:31)
[2021-07-31 02:39] LABS: Calcium 8.6 mg/dL (8.6-10.3); Magnesium 1.6 mg/dL (1.6-2.6); Potassium 4.8 mEq/L (3.5-5.1)
[2021-07-31] MEDS: Insulin LISPRO 300 UNITS/3 ML VIAL SUBQ SCH ×4 (07:46→20:21)
[2021-07-31] MEDS: Cholecalciferol (D-3) 1,000 UNIT (25MCG) TABLET PO SCH (08:29)
[2021-07-31] MEDS: carvediloL 6.25 MG TABLET PO SCH ×2 (08:29→16:07)
[2021-07-31] MEDS: Aspirin Enteric Coated 81 MG Tablet PO SCH (08:29)
[2021-07-31] MEDS: Isosorbide MONOnitrate (24 HR) 60 MG TAB.ER.24H PO SCH (08:30)
[2021-07-31] MEDS: Furosemide 20 MG/2 ML VIAL IVP SCH ×2 (08:30→20:22)
[2021-07-31] MEDS: Amoxicillin 500 MG CAPSULE PO SCH ×2 (08:30→20:22)
[2021-07-31] MEDS: hydrALAZINE 10 MG TABLET PO SCH ×3 (08:30→20:23)
[2021-07-31] MEDS: Multivit/Ca/Min/Fe/FA 1 TAB TABLET PO SCH (08:30)
[2021-07-31 10:13] LABS: ANA IgG by ELISA NONE DETECTED (None Detected); Kappa Qnt Free Light Chains 68.3 mg/L (3.30-19.40); Lambda Qnt Free Light Chains 84.94 mg/L (5.71-26.30)
[2021-07-31] MEDS: Albuterol 2.5 MG/3 ML NEBULIZER IH PRN (11:24)
[2021-07-31] MEDS: Gabapentin 100 MG CAPSULE PO SCH (20:23)
[2021-08-01 02:34] LABS: Alpha 2 Globulin (PEP) 1.15 g/dL (0.48-1.05)
[2021-08-01 02:46] LABS: Calcium 8.7 mg/dL (8.6-10.3); Potassium 4.6 mEq/L (3.5-5.1)
[2021-08-01] MEDS: Insulin LISPRO 300 UNITS/3 ML VIAL SUBQ SCH ×4 (07:13→21:05)
[2021-08-01] MEDS: Aspirin Enteric Coated 81 MG Tablet PO SCH (08:51)
[2021-08-01] MEDS: Furosemide 20 MG/2 ML VIAL IVP SCH (08:51)
[2021-08-01] MEDS: Multivit/Ca/Min/Fe/FA 1 TAB TABLET PO SCH (08:51)
[2021-08-01] MEDS: carvediloL 6.25 MG TABLET PO SCH ×2 (08:51→16:31)
[2021-08-01] MEDS: Amoxicillin 500 MG CAPSULE PO SCH ×2 (08:51→21:06)
[2021-08-01] MEDS: Cholecalciferol (D-3) 1,000 UNIT (25MCG) TABLET PO SCH (08:51)
[2021-08-01] MEDS: Isosorbide MONOnitrate (24 HR) 60 MG TAB.ER.24H PO SCH (08:51)
[2021-08-01] MEDS: hydrALAZINE 10 MG TABLET PO SCH ×3 (08:51→21:06)
[2021-08-01 10:08] LABS: IFE Reflexed NOT DONE
[2021-08-01] MEDS: Furosemide 40 MG TABLET PO SCH ×2 (13:00→16:31)
[2021-08-01 19:22] LABS: ANCA IFA Titer <1:20 (<1:20)
[2021-08-01] MEDS: Gabapentin 100 MG CAPSULE PO SCH (21:06)
[2021-08-02 01:32] LABS: Basophils # 0.1 K/mcL (0.0-0.2); Basophils % 0.8 %; Eosinophils # 0.6 K/mcL (0.0-0.6); Eosinophils % 7.4 %; Hematocrit 24.3 % (35.3-44.9); Hemoglobin 7.4 g/dL (11.5-15.4); Immature Granulocytes % 0.4 % (0-4); Lymphocytes # 1.1 K/mcL (0.6-4.6); Lymphocytes % 12.5 %; Mean Corpuscular HGB Conc 30.5 g/dL (31.6-35.5); Mean Corpuscular Hemoglobin 28.9 pg (28.0-33.3); Mean Corpuscular Volume 94.9 fL (83.0-100.0); Mean Platelet Volume 10.9 fL (9.4-12.4); Monocytes # 0.8 K/mcL (0.0-1.3); Platelet Count 310 K/mcL (140-400); Red Blood Count 2.56 M/mcL (3.82-4.97); Red Cell Distribution Width 16.3 % (11.5-14.5); Segmented Neutrophils % 69.9 %; White Blood Count 8.5 K/mcL (4.3-11.1)
[2021-08-02 01:46] LABS: Calcium 8.4 mg/dL (8.6-10.3); Potassium 4.6 mEq/L (3.5-5.1)
[2021-08-02] MEDS: Insulin LISPRO 300 UNITS/3 ML VIAL SUBQ SCH ×4 (07:24→21:21)
[2021-08-02] MEDS: Multivit/Ca/Min/Fe/FA 1 TAB TABLET PO SCH (07:32)
[2021-08-02] MEDS: carvediloL 25 MG TABLET PO SCH ×2 (07:33→18:27)
[2021-08-02] MEDS: Aspirin Enteric Coated 81 MG Tablet PO SCH (07:33)
[2021-08-02] MEDS: Amoxicillin 500 MG CAPSULE PO SCH ×2 (07:33→21:21)
[2021-08-02] MEDS: hydrALAZINE 10 MG TABLET PO SCH ×3 (07:33→21:24)
[2021-08-02] MEDS: Isosorbide MONOnitrate (24 HR) 60 MG TAB.ER.24H PO SCH (07:33)
[2021-08-02] MEDS: Furosemide 40 MG TABLET PO SCH ×2 (07:33→18:26)
[2021-08-02] MEDS: Cholecalciferol (D-3) 1,000 UNIT (25MCG) TABLET PO SCH (07:33)
[2021-08-02 09:56] LABS: ANCA IFA Pattern NONE DETECTED (None Detected); Serine Protease-3 Antibody 1 AU/mL (0-19)
[2021-08-02] MEDS ORDERED: Albumin 25% 12.5gm/50mL 12.5 GM/50 ML IV.SOLN IVPB SCH (16:00)
[2021-08-02] MEDS: Albumin 25% 12.5gm/50mL 12.5 GM/50 ML IV.SOLN IVPB SCH (18:38)
[2021-08-02] MEDS: Albuterol 2.5 MG/3 ML NEBULIZER IH PRN (18:45)
[2021-08-02] MEDS: Gabapentin 100 MG CAPSULE PO SCH (21:21)
[2021-08-02] MEDS: Melatonin 3 MG TABLET PO PRN (21:24)
[2021-08-02] MEDS ORDERED: *HR* LORazepam 2 MG/ML VIAL IVP ONE (22:45)
[2021-08-03] MEDS: Albumin 25% 12.5gm/50mL 12.5 GM/50 ML IV.SOLN IVPB SCH ×3 (04:12→22:03)
[2021-08-03 05:46] LABS: Basophils # 0.1 K/mcL (0.0-0.2); Basophils % 0.8 %; Eosinophils # 0.2 K/mcL (0.0-0.6); Eosinophils % 1.7 %; Hematocrit 22.4 % (35.3-44.9); Hemoglobin 6.9 g/dL (11.5-15.4); Immature Granulocytes % 0.6 % (0-4); Lymphocytes # 1.8 K/mcL (0.6-4.6); Lymphocytes % 14.9 %; Mean Corpuscular HGB Conc 30.8 g/dL (31.6-35.5); Mean Corpuscular Hemoglobin 29.2 pg (28.0-33.3); Mean Corpuscular Volume 94.9 fL (83.0-100.0); Mean Platelet Volume 10.8 fL (9.4-12.4); Monocytes # 1.1 K/mcL (0.0-1.3); Monocytes % 9.3 %; Neutrophils # 8.8 K/mcL (1.6-8.9); Platelet Count 406 K/mcL (140-400); Red Blood Count 2.36 M/mcL (3.82-4.97); Red Cell Distribution Width 16.4 % (11.5-14.5); Segmented Neutrophils % 72.7 %; White Blood Count 12.1 K/mcL (4.3-11.1)
[2021-08-03 06:07] LABS: Calcium 8.8 mg/dL (8.6-10.3); Potassium 4.5 mEq/L (3.5-5.1)
[2021-08-03] MEDS ORDERED: 0.9 % Sodium Chloride 250 ML IVC SCH (07:15)
[2021-08-03] MEDS: Insulin LISPRO 300 UNITS/3 ML VIAL SUBQ SCH ×4 (07:30→19:49)
[2021-08-03] MEDS: carvediloL 25 MG TABLET PO SCH ×3 (08:36→16:49)
[2021-08-03] MEDS ORDERED: *HR* Metoprolol 5 MG/5 ML VIAL IVP SCH (09:00)
[2021-08-03] MEDS: Furosemide 40 MG TABLET PO SCH ×2 (09:31→16:49)
[2021-08-03] MEDS: Multivit/Ca/Min/Fe/FA 1 TAB TABLET PO SCH (09:31)
[2021-08-03] MEDS: hydrALAZINE 10 MG TABLET PO SCH ×3 (09:31→19:49)
[2021-08-03] MEDS: Aspirin Enteric Coated 81 MG Tablet PO SCH (09:31)
[2021-08-03] MEDS: Cholecalciferol (D-3) 1,000 UNIT (25MCG) TABLET PO SCH (09:31)
[2021-08-03] MEDS: Isosorbide MONOnitrate (24 HR) 60 MG TAB.ER.24H PO SCH (09:31)
[2021-08-03] MEDS: Amoxicillin 500 MG CAPSULE PO SCH ×2 (09:31→19:49)
[2021-08-03] MEDS ORDERED: 0.9 % Sodium Chloride 500 ML ONE (09:59)
[2021-08-03] MEDS ORDERED: GI Cocktail 40 ML EACH PO ONE (15:16)
[2021-08-03 18:09] LABS: Basophils # 0.1 K/mcL (0.0-0.2); Basophils % 0.8 %; Eosinophils # 0.1 K/mcL (0.0-0.6); Eosinophils % 0.7 %; Hematocrit 21.9 % (35.3-44.9); Hemoglobin 7.1 g/dL (11.5-15.4); Immature Granulocytes % 0.4 % (0-4); Lymphocytes # 1.1 K/mcL (0.6-4.6); Lymphocytes % 12.2 %; Mean Corpuscular HGB Conc 32.4 g/dL (31.6-35.5); Mean Corpuscular Hemoglobin 29.6 pg (28.0-33.3); Mean Corpuscular Volume 91.3 fL (83.0-100.0); Mean Platelet Volume 10.7 fL (9.4-12.4); Monocytes # 0.9 K/mcL (0.0-1.3); Neutrophils # 6.8 K/mcL (1.6-8.9); Platelet Count 265 K/mcL (140-400); Red Cell Distribution Width 15.9 % (11.5-14.5); Segmented Neutrophils % 75.9 %
[2021-08-03] MEDS: Gabapentin 100 MG CAPSULE PO SCH (19:48)
[2021-08-04 02:21] LABS: Basophils # 0.1 K/mcL (0.0-0.2); Basophils % 0.9 %; Eosinophils # 0.1 K/mcL (0.0-0.6); Eosinophils % 1.1 %; Hematocrit 22.5 % (35.3-44.9); Hemoglobin 7.3 g/dL (11.5-15.4); Immature Granulocytes % 0.7 % (0-4); Lymphocytes # 1.1 K/mcL (0.6-4.6); Lymphocytes % 13.7 %; Mean Corpuscular HGB Conc 32.4 g/dL (31.6-35.5); Mean Corpuscular Hemoglobin 29.8 pg (28.0-33.3); Mean Corpuscular Volume 91.8 fL (83.0-100.0); Mean Platelet Volume 11.1 fL (9.4-12.4); Monocytes # 0.7 K/mcL (0.0-1.3); Monocytes % 9.1 %; Neutrophils # 6.1 K/mcL (1.6-8.9); Platelet Count 269 K/mcL (140-400); Red Blood Count 2.45 M/mcL (3.82-4.97); Red Cell Distribution Width 16.2 % (11.5-14.5); Segmented Neutrophils % 74.5 %; White Blood Count 8.2 K/mcL (4.3-11.1)
[2021-08-04 02:40] LABS: Potassium 3.9 mEq/L (3.5-5.1)
[2021-08-04] MEDS: Albumin 25% 12.5gm/50mL 12.5 GM/50 ML IV.SOLN IVPB SCH ×3 (05:52→21:35)
[2021-08-04] MEDS: Isosorbide MONOnitrate (24 HR) 60 MG TAB.ER.24H PO SCH (08:10)
[2021-08-04] MEDS: Cholecalciferol (D-3) 1,000 UNIT (25MCG) TABLET PO SCH (08:11)
[2021-08-04] MEDS: carvediloL 25 MG TABLET PO SCH ×2 (08:11→17:06)
[2021-08-04] MEDS: Aspirin Enteric Coated 81 MG Tablet PO SCH (08:11)
[2021-08-04] MEDS: hydrALAZINE 10 MG TABLET PO SCH ×3 (08:12→21:12)
[2021-08-04] MEDS: Amoxicillin 500 MG CAPSULE PO SCH ×2 (08:12→21:12)
[2021-08-04] MEDS: Furosemide 40 MG TABLET PO SCH ×2 (08:13→17:06)
[2021-08-04] MEDS: Multivit/Ca/Min/Fe/FA 1 TAB TABLET PO SCH (08:13)
[2021-08-04] MEDS: Insulin LISPRO 300 UNITS/3 ML VIAL SUBQ SCH ×4 (08:15→21:29)
[2021-08-04 12:47] LABS: Magnesium 1.7 mg/dL (1.6-2.6)
[2021-08-04 14:26] LABS: ABG Base Excess 4 mEq/L (-2 to 3); ABG HCO3 28 mEq/L (21-27); ABG Oxygen Saturation 97 % (95-98); ABG PCO2 43 mmHg (35-45); ABG PH 7.43 pH Units (7.32-7.45); ABG PO2 88 mmHg (85-104); ABG TCO2 30 mEq/L (20-26)
[2021-08-04] MEDS: Albuterol 2.5 MG/3 ML NEBULIZER IH PRN (14:30)
[2021-08-04] MEDS: Gabapentin 100 MG CAPSULE PO SCH (21:12)
[2021-08-05 01:39] LABS: Basophils # 0.1 K/mcL (0.0-0.2); Basophils % 0.9 %; Eosinophils # 0.5 K/mcL (0.0-0.6); Eosinophils % 4.8 %; Hematocrit 21.5 % (35.3-44.9); Hemoglobin 6.8 g/dL (11.5-15.4); Immature Granulocytes % 0.7 % (0-4); Lymphocytes # 1.1 K/mcL (0.6-4.6); Lymphocytes % 10.8 %; Mean Corpuscular HGB Conc 31.6 g/dL (31.6-35.5); Mean Corpuscular Hemoglobin 29.3 pg (28.0-33.3); Mean Corpuscular Volume 92.7 fL (83.0-100.0); Monocytes # 1.1 K/mcL (0.0-1.3); Monocytes % 10.6 %; Neutrophils # 7.6 K/mcL (1.6-8.9); Nucleated Red Blood Cells 0.4 /100 WBC (0); Platelet Count 266 K/mcL (140-400); Red Blood Count 2.32 M/mcL (3.82-4.97); Red Cell Distribution Width 16.6 % (11.5-14.5); Segmented Neutrophils % 72.2 %; White Blood Count 10.5 K/mcL (4.3-11.1)
[2021-08-05 02:08] LABS: Potassium 3.5 mEq/L (3.5-5.1)
[2021-08-05] MEDS: Albumin 25% 12.5gm/50mL 12.5 GM/50 ML IV.SOLN IVPB SCH ×2 (05:45→13:25)
[2021-08-05] MEDS ORDERED: 0.9 % Sodium Chloride 250 ML IVC SCH (07:15)
[2021-08-05] MEDS: Aspirin Enteric Coated 81 MG Tablet PO SCH (09:17)
[2021-08-05] MEDS: Furosemide 40 MG TABLET PO SCH ×2 (09:18→17:00)
[2021-08-05] MEDS: carvediloL 25 MG TABLET PO SCH ×2 (09:18→16:59)
[2021-08-05] MEDS: hydrALAZINE 10 MG TABLET PO SCH ×3 (09:19→21:34)
[2021-08-05] MEDS: Multivit/Ca/Min/Fe/FA 1 TAB TABLET PO SCH (09:19)
[2021-08-05] MEDS: Isosorbide MONOnitrate (24 HR) 60 MG TAB.ER.24H PO SCH (09:19)
[2021-08-05] MEDS: Amoxicillin 500 MG CAPSULE PO SCH ×2 (09:19→21:34)
[2021-08-05] MEDS: Cholecalciferol (D-3) 1,000 UNIT (25MCG) TABLET PO SCH (09:19)
[2021-08-05] MEDS: Insulin LISPRO 300 UNITS/3 ML VIAL SUBQ SCH ×4 (09:20→21:27)
[2021-08-05] MEDS: Pantoprazole 40 MG VIAL IVP SCH ×2 (10:45→21:35)
[2021-08-05] MEDS: Albuterol 2.5 MG/3 ML NEBULIZER IH PRN (11:09)
[2021-08-05 13:20] LABS: Hematocrit 24.8 % (35.3-44.9); Hemoglobin 7.8 g/dL (11.5-15.4)
[2021-08-05 13:23] LABS: Bilirubin,Urine Negative (Negative); Blood,Urine Large (Negative); Clarity,Urine Turbid (Clear); Color,Urine Yellow (Yellow); Glucose,Urine (UA) Normal (Normal); Hyaline Casts,Urine Many per lpf (None Seen); Ketones,Urine Negative (Negative); Leukocyte Esterase,Urine Small (Negative); Mucus,Urine Few per lpf (None-Few); Nitrite,Urine Negative (Negative); Protein,Urine 200 mg/dL (Neg-Trace); RBC,Urine TNTC per hpf (0-3); Renal Epithelial Cells,Urine Few per hpf (None-Few); Specific Gravity,Urine 1.014 (1.010-1.025); Transitional Epi Cells,Urine Few per hpf (None-Few); Urobilinogen,Urine Normal (Normal); WBC,Urine 15-30 per hpf (0-3)
[2021-08-05 15:33] LABS: Protein/Creatinine Ratio,Urine 4.31 mg/mg (0.00-0.20)
[2021-08-05] MEDS: Gabapentin 100 MG CAPSULE PO SCH (21:35)
[2021-08-06 04:11] LABS: Basophils # 0.1 K/mcL (0.0-0.2); Basophils % 0.8 %; Eosinophils # 0.6 K/mcL (0.0-0.6); Eosinophils % 5.6 %; Hematocrit 25.5 % (35.3-44.9); Hemoglobin 7.9 g/dL (11.5-15.4); Immature Granulocytes % 0.8 % (0-4); Mean Corpuscular Hemoglobin 29.9 pg (28.0-33.3); Mean Corpuscular Volume 96.6 fL (83.0-100.0); Monocytes # 0.9 K/mcL (0.0-1.3); Monocytes % 8.7 %; Neutrophils # 7.2 K/mcL (1.6-8.9); Nucleated Red Blood Cells 0.3 /100 WBC (0); Platelet Count 289 K/mcL (140-400); Red Blood Count 2.64 M/mcL (3.82-4.97); Red Cell Distribution Width 16.2 % (11.5-14.5); Segmented Neutrophils % 74.1 %; White Blood Count 9.8 K/mcL (4.3-11.1)
[2021-08-06 04:31] LABS: Calcium 8.9 mg/dL (8.6-10.3); Magnesium 2.1 mg/dL (1.6-2.6); Potassium 3.4 mEq/L (3.5-5.1)
[2021-08-06] MEDS: hydrALAZINE 10 MG TABLET PO SCH ×3 (08:03→21:15)
[2021-08-06] MEDS: Isosorbide MONOnitrate (24 HR) 60 MG TAB.ER.24H PO SCH (08:03)
[2021-08-06] MEDS: Insulin LISPRO 300 UNITS/3 ML VIAL SUBQ SCH ×4 (08:04→21:15)
[2021-08-06] MEDS: carvediloL 25 MG TABLET PO SCH ×2 (08:04→17:18)
[2021-08-06] MEDS: Cholecalciferol (D-3) 1,000 UNIT (25MCG) TABLET PO SCH (08:04)
[2021-08-06] MEDS: Aspirin Enteric Coated 81 MG Tablet PO SCH (09:07)
[2021-08-06] MEDS: Pantoprazole 40 MG VIAL IVP SCH ×2 (09:07→21:14)
[2021-08-06] MEDS: Multivit/Ca/Min/Fe/FA 1 TAB TABLET PO SCH (09:07)
[2021-08-06] MEDS: Furosemide 40 MG TABLET PO SCH ×2 (09:07→17:17)
[2021-08-06 09:24] LABS: Albumin 3.5 g/dL (3.5-5.7); Albumin/Globulin Ratio 1.8 (1.1-2.2); Bilirubin,Direct 0.4 mg/dL (0.0-0.2); Bilirubin,Indirect 0.8 mg/dL (0.0-1.0); Bilirubin,Total 1.2 mg/dL (0.3-1.0); Total Protein 5.5 g/dL (6.4-8.9)
[2021-08-06] MEDS ORDERED: Piperacillin/Tazobactam 3.375 GM in 0.9 % Sodium Chloride Mini Bag 100 ML IVPB SCH (10:00)
[2021-08-06] MEDS: Ipratropium/Albuterol Neb 3 ML IH SCH ×4 (11:31→23:28)
[2021-08-06] MEDS: Piperacillin/Tazobactam 3.375 GM in 0.9 % Sodium Chloride Mini Bag 100 ML IVPB SCH ×2 (12:28→21:13)
[2021-08-06] MEDS: Gabapentin 100 MG CAPSULE PO SCH (21:15)
[2021-08-07 02:59] LABS: Basophils # 0.1 K/mcL (0.0-0.2); Basophils % 1.1 %; Eosinophils # 0.4 K/mcL (0.0-0.6); Eosinophils % 4.9 %; Hematocrit 25.8 % (35.3-44.9); Hemoglobin 7.7 g/dL (11.5-15.4); Immature Granulocytes % 0.5 % (0-4); Lymphocytes # 0.9 K/mcL (0.6-4.6); Mean Corpuscular HGB Conc 29.8 g/dL (31.6-35.5); Mean Corpuscular Hemoglobin 29.2 pg (28.0-33.3); Mean Corpuscular Volume 97.7 fL (83.0-100.0); Mean Platelet Volume 10.8 fL (9.4-12.4); Monocytes # 0.8 K/mcL (0.0-1.3); Monocytes % 10.3 %; Neutrophils # 5.9 K/mcL (1.6-8.9); Platelet Count 288 K/mcL (140-400); Red Blood Count 2.64 M/mcL (3.82-4.97); Red Cell Distribution Width 16.9 % (11.5-14.5); Segmented Neutrophils % 72.2 %; White Blood Count 8.2 K/mcL (4.3-11.1)
[2021-08-07] MEDS: Ipratropium/Albuterol Neb 3 ML IH SCH ×6 (04:10→23:15)
[2021-08-07 04:30] LABS: Albumin 3.4 g/dL (3.5-5.7); Albumin/Globulin Ratio 1.5 (1.1-2.2); Bilirubin,Total 1.2 mg/dL (0.3-1.0); Calcium 8.7 mg/dL (8.6-10.3); Globulin 2.2 g/dL (2.4-3.5); Potassium 3.7 mEq/L (3.5-5.1); Total Protein 5.6 g/dL (6.4-8.9)
[2021-08-07] MEDS: Piperacillin/Tazobactam 3.375 GM in 0.9 % Sodium Chloride Mini Bag 100 ML IVPB SCH ×3 (05:10→21:42)
[2021-08-07] MEDS: Insulin LISPRO 300 UNITS/3 ML VIAL SUBQ SCH ×4 (08:34→21:42)
[2021-08-07] MEDS: Pantoprazole 40 MG VIAL IVP SCH ×2 (08:37→21:41)
[2021-08-07] MEDS: carvediloL 25 MG TABLET PO SCH ×2 (08:38→15:49)
[2021-08-07] MEDS: Furosemide 40 MG TABLET PO SCH ×2 (08:38→15:48)
[2021-08-07] MEDS: hydrALAZINE 10 MG TABLET PO SCH ×3 (08:38→21:41)
[2021-08-07] MEDS: Isosorbide MONOnitrate (24 HR) 60 MG TAB.ER.24H PO SCH (08:38)
[2021-08-07] MEDS: Cholecalciferol (D-3) 1,000 UNIT (25MCG) TABLET PO SCH (08:38)
[2021-08-07] MEDS: Multivit/Ca/Min/Fe/FA 1 TAB TABLET PO SCH (08:38)
[2021-08-07] MEDS ORDERED: Nitroglycerin 0.4 MG TAB.SUBL SL PRN (16:42)
[2021-08-07] MEDS ORDERED: *HR* HYDROcodone/Acet 5/325 mg TABLET PO PRN (16:54)
[2021-08-07] MEDS: Gabapentin 100 MG CAPSULE PO SCH (21:41)
[2021-08-08 01:49] LABS: Hematocrit 25.2 % (35.3-44.9); Hemoglobin 7.5 g/dL (11.5-15.4)
[2021-08-08 02:07] LABS: Calcium 8.6 mg/dL (8.6-10.3); Magnesium 1.9 mg/dL (1.6-2.6); Potassium 3.6 mEq/L (3.5-5.1)
[2021-08-08] MEDS: Ipratropium/Albuterol Neb 3 ML IH SCH ×6 (03:25→23:14)
[2021-08-08] MEDS: Piperacillin/Tazobactam 3.375 GM in 0.9 % Sodium Chloride Mini Bag 100 ML IVPB SCH ×3 (04:31→21:05)
[2021-08-08] MEDS: Insulin LISPRO 300 UNITS/3 ML VIAL SUBQ SCH ×4 (08:18→21:06)
[2021-08-08] MEDS: Cholecalciferol (D-3) 1,000 UNIT (25MCG) TABLET PO SCH (08:24)
[2021-08-08] MEDS: Furosemide 40 MG TABLET PO SCH ×2 (08:24→17:04)
[2021-08-08] MEDS: Pantoprazole 40 MG VIAL IVP SCH ×2 (08:25→21:06)
[2021-08-08] MEDS: Multivit/Ca/Min/Fe/FA 1 TAB TABLET PO SCH (08:25)
[2021-08-08] MEDS: Isosorbide MONOnitrate (24 HR) 60 MG TAB.ER.24H PO SCH (08:25)
[2021-08-08] MEDS: carvediloL 25 MG TABLET PO SCH ×2 (08:25→17:04)
[2021-08-08] MEDS: hydrALAZINE 10 MG TABLET PO SCH ×3 (08:25→21:06)
[2021-08-08] MEDS: Gabapentin 100 MG CAPSULE PO SCH (21:06)
[2021-08-09 02:49] LABS: Hematocrit 26.1 % (35.3-44.9); Hemoglobin 7.8 g/dL (11.5-15.4); Mean Corpuscular HGB Conc 29.9 g/dL (31.6-35.5); Mean Corpuscular Hemoglobin 29.8 pg (28.0-33.3); Mean Corpuscular Volume 99.6 fL (83.0-100.0); Mean Platelet Volume 10.6 fL (9.4-12.4); Platelet Count 287 K/mcL (140-400); Red Blood Count 2.62 M/mcL (3.82-4.97); Red Cell Distribution Width 16.9 % (11.5-14.5); White Blood Count 8.7 K/mcL (4.3-11.1)
[2021-08-09 03:13] LABS: Calcium 8.8 mg/dL (8.6-10.3); Potassium 3.8 mEq/L (3.5-5.1)
[2021-08-09] MEDS: Ipratropium/Albuterol Neb 3 ML IH SCH ×4 (03:45→15:36)
[2021-08-09] MEDS: Piperacillin/Tazobactam 3.375 GM in 0.9 % Sodium Chloride Mini Bag 100 ML IVPB SCH ×2 (04:18→14:59)
[2021-08-09 04:37] LABS: Folate > 22.3 ng/mL (3.0-16.0); Vitamin B12 941 pg/mL (250-1100)
[2021-08-09] MEDS: Insulin LISPRO 300 UNITS/3 ML VIAL SUBQ SCH ×4 (07:33→20:38)
[2021-08-09] MEDS: Cholecalciferol (D-3) 1,000 UNIT (25MCG) TABLET PO SCH (08:05)
[2021-08-09] MEDS: Isosorbide MONOnitrate (24 HR) 60 MG TAB.ER.24H PO SCH (08:05)
[2021-08-09] MEDS: Multivit/Ca/Min/Fe/FA 1 TAB TABLET PO SCH (08:05)
[2021-08-09] MEDS: hydrALAZINE 10 MG TABLET PO SCH ×3 (08:05→20:35)
[2021-08-09] MEDS: carvediloL 25 MG TABLET PO SCH ×2 (08:05→16:17)
[2021-08-09] MEDS: Pantoprazole 40 MG VIAL IVP SCH ×2 (08:09→20:34)
[2021-08-09] MEDS: Iron Sucrose Complex 250 MG in 0.9 % Sodium Chloride 250 ML IVPB SCH (09:07)
[2021-08-09 12:37] LABS: INR 1.6; Prothrombin Time 18.2 Seconds (9.4-12.1)
[2021-08-09] MEDS: Gabapentin 100 MG CAPSULE PO SCH (20:35)
[2021-08-09] MEDS: Melatonin 3 MG TABLET PO PRN (20:35)
[2021-08-10] MEDS: Piperacillin/Tazobactam 3.375 GM in 0.9 % Sodium Chloride Mini Bag 100 ML IVPB SCH ×2 (01:01→15:26)
[2021-08-10 05:32] LABS: Hematocrit 25.8 % (35.3-44.9); Hemoglobin 7.6 g/dL (11.5-15.4); Mean Corpuscular HGB Conc 29.5 g/dL (31.6-35.5); Mean Corpuscular Hemoglobin 29.5 pg (28.0-33.3); Platelet Count 276 K/mcL (140-400); Red Blood Count 2.58 M/mcL (3.82-4.97); Red Cell Distribution Width 16.9 % (11.5-14.5); White Blood Count 8.5 K/mcL (4.3-11.1)
[2021-08-10 05:49] LABS: Calcium 8.8 mg/dL (8.6-10.3); Potassium 3.7 mEq/L (3.5-5.1)
[2021-08-10] MEDS: Insulin LISPRO 300 UNITS/3 ML VIAL SUBQ SCH ×4 (07:27→21:17)
[2021-08-10] MEDS: Aspirin Enteric Coated 81 MG Tablet PO SCH (08:42)
[2021-08-10] MEDS: Multivit/Ca/Min/Fe/FA 1 TAB TABLET PO SCH (08:42)
[2021-08-10] MEDS: carvediloL 25 MG TABLET PO SCH ×2 (08:42→16:58)
[2021-08-10] MEDS: Isosorbide MONOnitrate (24 HR) 60 MG TAB.ER.24H PO SCH (08:42)
[2021-08-10] MEDS: Cholecalciferol (D-3) 1,000 UNIT (25MCG) TABLET PO SCH (08:42)
[2021-08-10] MEDS: hydrALAZINE 10 MG TABLET PO SCH ×3 (08:42→21:16)
[2021-08-10] MEDS: Furosemide 40 MG TABLET PO SCH (08:42)
[2021-08-10] MEDS: Pantoprazole 40 MG VIAL IVP SCH ×2 (08:43→21:16)
[2021-08-10] MEDS: Iron Sucrose Complex 250 MG in 0.9 % Sodium Chloride 250 ML IVPB SCH (08:48)
[2021-08-10] MEDS ORDERED: Bumetanide 1 MG TABLET PO SCH (17:00)
[2021-08-10] MEDS: Melatonin 3 MG TABLET PO PRN (21:16)
[2021-08-10] MEDS: Gabapentin 100 MG CAPSULE PO SCH (21:16)
[2021-08-11] MEDS: Piperacillin/Tazobactam 3.375 GM in 0.9 % Sodium Chloride Mini Bag 100 ML IVPB SCH ×2 (03:01→15:17)
[2021-08-11 05:15] LABS: Hematocrit 25.5 % (35.3-44.9); Hemoglobin 7.7 g/dL (11.5-15.4); Mean Corpuscular HGB Conc 30.2 g/dL (31.6-35.5); Mean Corpuscular Volume 99.2 fL (83.0-100.0); Mean Platelet Volume 10.9 fL (9.4-12.4); Platelet Count 279 K/mcL (140-400); Red Blood Count 2.57 M/mcL (3.82-4.97); Red Cell Distribution Width 16.8 % (11.5-14.5); White Blood Count 9.2 K/mcL (4.3-11.1)
[2021-08-11 05:36] LABS: Albumin 3.3 g/dL (3.5-5.7); Albumin/Globulin Ratio 1.4 (1.1-2.2); Bilirubin,Direct 0.3 mg/dL (0.0-0.2); Bilirubin,Indirect 0.8 mg/dL (0.0-1.0); Bilirubin,Total 1.1 mg/dL (0.3-1.0); Calcium 8.8 mg/dL (8.6-10.3); Globulin 2.4 g/dL (2.4-3.5); Potassium 3.5 mEq/L (3.5-5.1); Total Protein 5.7 g/dL (6.4-8.9)
[2021-08-11] MEDS: Insulin LISPRO 300 UNITS/3 ML VIAL SUBQ SCH ×4 (07:40→21:23)
[2021-08-11] MEDS: Isosorbide MONOnitrate (24 HR) 60 MG TAB.ER.24H PO SCH (09:05)
[2021-08-11] MEDS: Cholecalciferol (D-3) 1,000 UNIT (25MCG) TABLET PO SCH (09:05)
[2021-08-11] MEDS: Aspirin Enteric Coated 81 MG Tablet PO SCH (09:05)
[2021-08-11] MEDS: Iron Sucrose Complex 250 MG in 0.9 % Sodium Chloride 250 ML IVPB SCH (09:05)
[2021-08-11] MEDS: carvediloL 25 MG TABLET PO SCH ×2 (09:05→17:19)
[2021-08-11] MEDS: hydrALAZINE 10 MG TABLET PO SCH ×3 (09:05→21:21)
[2021-08-11] MEDS: Multivit/Ca/Min/Fe/FA 1 TAB TABLET PO SCH (09:05)
[2021-08-11] MEDS: Pantoprazole 40 MG VIAL IVP SCH ×2 (10:03→21:21)
[2021-08-11] MEDS: Albuterol 2.5 MG/3 ML NEBULIZER IH PRN (15:37)
[2021-08-11] MEDS: Gabapentin 100 MG CAPSULE PO SCH (21:20)
[2021-08-11] MEDS: Melatonin 3 MG TABLET PO PRN (21:20)
[2021-08-12 04:35] LABS: Hematocrit 25.7 % (35.3-44.9); Hemoglobin 7.6 g/dL (11.5-15.4); Mean Corpuscular HGB Conc 29.6 g/dL (31.6-35.5); Mean Corpuscular Hemoglobin 29.6 pg (28.0-33.3); Mean Platelet Volume 10.6 fL (9.4-12.4); Platelet Count 262 K/mcL (140-400); Red Blood Count 2.57 M/mcL (3.82-4.97); Red Cell Distribution Width 16.7 % (11.5-14.5); White Blood Count 10.4 K/mcL (4.3-11.1)
[2021-08-12 04:55] LABS: Calcium 8.8 mg/dL (8.6-10.3); Potassium 3.9 mEq/L (3.5-5.1)
[2021-08-12] MEDS: Piperacillin/Tazobactam 3.375 GM in 0.9 % Sodium Chloride Mini Bag 100 ML IVPB SCH (05:55)
[2021-08-12] MEDS: Insulin LISPRO 300 UNITS/3 ML VIAL SUBQ SCH ×4 (08:10→22:04)
[2021-08-12] MEDS: hydrALAZINE 10 MG TABLET PO SCH ×3 (08:51→22:08)
[2021-08-12] MEDS: Multivit/Ca/Min/Fe/FA 1 TAB TABLET PO SCH (08:51)
[2021-08-12] MEDS: Isosorbide MONOnitrate (24 HR) 60 MG TAB.ER.24H PO SCH (08:51)
[2021-08-12] MEDS: carvediloL 25 MG TABLET PO SCH ×2 (08:51→16:17)
[2021-08-12] MEDS: Aspirin Enteric Coated 81 MG Tablet PO SCH (08:51)
[2021-08-12] MEDS: *HR* HYDROcodone/Acet 5/325 mg TABLET PO PRN ×3 (08:51→22:08)
[2021-08-12] MEDS: Cholecalciferol (D-3) 1,000 UNIT (25MCG) TABLET PO SCH (08:51)
[2021-08-12] MEDS: Pantoprazole 40 MG VIAL IVP SCH ×2 (08:52→22:09)
[2021-08-12] MEDS: Iron Sucrose Complex 250 MG in 0.9 % Sodium Chloride 250 ML IVPB SCH (08:52)
[2021-08-12] MEDS ORDERED: Albumin 25% 25gram/100mL 25 GM/100 ML IV.SOLN IVPB ONE (09:46)
[2021-08-12] MEDS ORDERED: Furosemide 40 MG/4 ML VIAL IVP ONE (12:00)
[2021-08-12] MEDS: Gabapentin 100 MG CAPSULE PO SCH (22:08)
[2021-08-13 05:45] LABS: Hematocrit 26.6 % (35.3-44.9); Hemoglobin 7.9 g/dL (11.5-15.4); Mean Corpuscular HGB Conc 29.7 g/dL (31.6-35.5); Mean Corpuscular Volume 101.1 fL (83.0-100.0); Mean Platelet Volume 10.6 fL (9.4-12.4); Platelet Count 274 K/mcL (140-400); Red Blood Count 2.63 M/mcL (3.82-4.97); Red Cell Distribution Width 17.1 % (11.5-14.5); White Blood Count 10.8 K/mcL (4.3-11.1)
[2021-08-13 05:49] LABS: INR 1.6; Prothrombin Time 18.3 Seconds (9.4-12.1)
[2021-08-13 06:11] LABS: Calcium 9.1 mg/dL (8.6-10.3); Potassium 4.1 mEq/L (3.5-5.1)
[2021-08-13] MEDS: Insulin LISPRO 300 UNITS/3 ML VIAL SUBQ SCH ×4 (07:24→21:47)
[2021-08-13] MEDS: Pantoprazole 40 MG VIAL IVP SCH (09:04)
[2021-08-13] MEDS: Multivit/Ca/Min/Fe/FA 1 TAB TABLET PO SCH (09:05)
[2021-08-13] MEDS: hydrALAZINE 10 MG TABLET PO SCH ×3 (09:05→21:56)
[2021-08-13] MEDS: Cholecalciferol (D-3) 1,000 UNIT (25MCG) TABLET PO SCH (09:05)
[2021-08-13] MEDS: Isosorbide MONOnitrate (24 HR) 60 MG TAB.ER.24H PO SCH (09:05)
[2021-08-13] MEDS: Aspirin Enteric Coated 81 MG Tablet PO SCH (09:05)
[2021-08-13] MEDS: carvediloL 25 MG TABLET PO SCH ×2 (09:05→17:52)
[2021-08-13] MEDS: Iron Sucrose Complex 250 MG in 0.9 % Sodium Chloride 250 ML IVPB SCH (09:06)
[2021-08-13] MEDS ORDERED: 0.9 % Sodium Chloride 250 ML IVC PRN (12:37)
[2021-08-13] MEDS ORDERED: *HR* Heparin 10,000 UNIT/10 ML VIAL IV PRN (12:37)
[2021-08-13] MEDS ORDERED: 0.9 % Sodium Chloride 1,000 ML PRIME SCH (12:45)
[2021-08-13] MEDS ORDERED: Heparin 1,000 UNITS/500 mL 500 ML ONE (14:27)
[2021-08-13] MEDS ORDERED: Lidocaine/EPI 1:100k 1% 50 ML VIAL ONE (14:28)
[2021-08-13] MEDS ORDERED: *HR* Heparin 5,000 UNIT/ML VIAL ONE (14:54)
[2021-08-13] MEDS: Gabapentin 100 MG CAPSULE PO SCH (21:56)
[2021-08-13] MEDS: *HR* HYDROcodone/Acet 5/325 mg TABLET PO PRN (22:03)
[2021-08-14 06:25] LABS: Hematocrit 27.7 % (35.3-44.9); Hemoglobin 8.3 g/dL (11.5-15.4); Mean Corpuscular Hemoglobin 30.1 pg (28.0-33.3); Mean Corpuscular Volume 100.4 fL (83.0-100.0); Mean Platelet Volume 10.5 fL (9.4-12.4); Platelet Count 319 K/mcL (140-400); Red Blood Count 2.76 M/mcL (3.82-4.97); Red Cell Distribution Width 17.4 % (11.5-14.5); White Blood Count 11.6 K/mcL (4.3-11.1)
[2021-08-14 06:44] LABS: Calcium 9.2 mg/dL (8.6-10.3); Potassium 4.3 mEq/L (3.5-5.1)
[2021-08-14] MEDS: Insulin LISPRO 300 UNITS/3 ML VIAL SUBQ SCH ×4 (08:12→20:22)
[2021-08-14] MEDS: Cholecalciferol (D-3) 1,000 UNIT (25MCG) TABLET PO SCH (08:25)
[2021-08-14] MEDS: Aspirin Enteric Coated 81 MG Tablet PO SCH (08:25)
[2021-08-14] MEDS: Isosorbide MONOnitrate (24 HR) 60 MG TAB.ER.24H PO SCH (08:25)
[2021-08-14] MEDS: Multivit/Ca/Min/Fe/FA 1 TAB TABLET PO SCH (08:25)
[2021-08-14] MEDS: carvediloL 25 MG TABLET PO SCH ×2 (08:25→16:14)
[2021-08-14] MEDS: hydrALAZINE 10 MG TABLET PO SCH ×3 (08:26→20:40)
[2021-08-14] MEDS: *HR* HYDROcodone/Acet 5/325 mg TABLET PO PRN ×2 (08:29→16:17)
[2021-08-14] MEDS ORDERED: *HR* Heparin 10,000 UNIT/10 ML VIAL IV PRN (10:11)
[2021-08-14] MEDS ORDERED: 0.9 % Sodium Chloride 250 ML IVC PRN (10:11)
[2021-08-14 11:34] LABS: Hepatitis B Surface Antibody < 3.10 mIU/mL
[2021-08-14 11:45] LABS: Hepatitis B Surface Antigen Nonreactive (Nonreactive)
[2021-08-14] MEDS: Gabapentin 100 MG CAPSULE PO SCH (20:40)
[2021-08-15 03:00] LABS: Hematocrit 25.6 % (35.3-44.9); Hemoglobin 7.7 g/dL (11.5-15.4); Mean Corpuscular HGB Conc 30.1 g/dL (31.6-35.5); Mean Corpuscular Hemoglobin 30.1 pg (28.0-33.3); Mean Platelet Volume 10.6 fL (9.4-12.4); Platelet Count 252 K/mcL (140-400); Red Blood Count 2.56 M/mcL (3.82-4.97); Red Cell Distribution Width 17.2 % (11.5-14.5); White Blood Count 8.7 K/mcL (4.3-11.1)
[2021-08-15 03:16] LABS: Calcium 8.9 mg/dL (8.6-10.3); Potassium 4.1 mEq/L (3.5-5.1)
[2021-08-15] MEDS: *HR* HYDROcodone/Acet 5/325 mg TABLET PO PRN ×3 (03:40→22:02)
[2021-08-15] MEDS: hydrALAZINE 10 MG TABLET PO SCH ×3 (07:09→20:10)
[2021-08-15] MEDS: Insulin LISPRO 300 UNITS/3 ML VIAL SUBQ SCH ×4 (07:46→20:10)
[2021-08-15] MEDS: Isosorbide MONOnitrate (24 HR) 60 MG TAB.ER.24H PO SCH (07:59)
[2021-08-15] MEDS: Cholecalciferol (D-3) 1,000 UNIT (25MCG) TABLET PO SCH (07:59)
[2021-08-15] MEDS: carvediloL 25 MG TABLET PO SCH ×2 (07:59→17:28)
[2021-08-15] MEDS: Multivit/Ca/Min/Fe/FA 1 TAB TABLET PO SCH (07:59)
[2021-08-15] MEDS: Aspirin Enteric Coated 81 MG Tablet PO SCH (07:59)
[2021-08-15] MEDS ORDERED: 0.9 % Sodium Chloride 250 ML IVC PRN (08:07)
[2021-08-15] MEDS ORDERED: *HR* Heparin 10,000 UNIT/10 ML VIAL IV PRN (08:07)
[2021-08-15] MEDS: Gabapentin 100 MG CAPSULE PO SCH (20:10)
[2021-08-16 03:12] LABS: Hematocrit 25.4 % (35.3-44.9); Hemoglobin 7.5 g/dL (11.5-15.4); Mean Corpuscular Hemoglobin 29.9 pg (28.0-33.3); Mean Corpuscular Volume 101.2 fL (83.0-100.0); Red Blood Count 2.51 M/mcL (3.82-4.97); White Blood Count 9.9 K/mcL (4.3-11.1)
[2021-08-16 03:13] LABS: Basophils # 0.1 K/mcL (0.0-0.2); Basophils % 0.9 %; Eosinophils # 0.5 K/mcL (0.0-0.6); Eosinophils % 4.9 %; Immature Granulocytes % 0.5 % (0-4); Lymphocytes % 10.3 %; Mean Corpuscular HGB Conc 29.5 g/dL (31.6-35.5); Monocytes # 1.3 K/mcL (0.0-1.3); Monocytes % 13.1 %; Neutrophils # 6.9 K/mcL (1.6-8.9); Platelet Count 248 K/mcL (140-400); Red Cell Distribution Width 17.2 % (11.5-14.5); Segmented Neutrophils % 70.3 %
[2021-08-16 03:47] LABS: Calcium 8.5 mg/dL (8.6-10.3); Potassium 3.9 mEq/L (3.5-5.1)
[2021-08-16] MEDS: Insulin LISPRO 300 UNITS/3 ML VIAL SUBQ SCH ×4 (07:47→21:05)
[2021-08-16] MEDS: Aspirin Enteric Coated 81 MG Tablet PO SCH (08:47)
[2021-08-16] MEDS: Multivit/Ca/Min/Fe/FA 1 TAB TABLET PO SCH (08:47)
[2021-08-16] MEDS: Cholecalciferol (D-3) 1,000 UNIT (25MCG) TABLET PO SCH (08:47)
[2021-08-16] MEDS: Isosorbide MONOnitrate (24 HR) 60 MG TAB.ER.24H PO SCH (08:48)
[2021-08-16] MEDS: *HR* HYDROcodone/Acet 5/325 mg TABLET PO PRN (08:48)
[2021-08-16] MEDS: hydrALAZINE 10 MG TABLET PO SCH ×3 (08:48→21:05)
[2021-08-16] MEDS: carvediloL 25 MG TABLET PO SCH ×2 (08:48→17:04)
[2021-08-16] MEDS: Ipratropium/Albuterol Neb 3 ML IH PRN (09:57)
[2021-08-16] MEDS ORDERED: Furosemide 40 MG/4 ML VIAL IVP ONE (10:00)
[2021-08-16] MEDS: Furosemide 40 MG/4 ML VIAL IVP SCH (17:04)
[2021-08-16] MEDS: Gabapentin 100 MG CAPSULE PO SCH (21:05)
[2021-08-17] MEDS: Ipratropium/Albuterol Neb 3 ML IH PRN (04:41)
[2021-08-17 06:00] LABS: Basophils # 0.1 K/mcL (0.0-0.2); Eosinophils # 0.4 K/mcL (0.0-0.6); Eosinophils % 4.4 %; Hematocrit 25.5 % (35.3-44.9); Hemoglobin 7.5 g/dL (11.5-15.4); Immature Granulocytes % 0.5 % (0-4); Lymphocytes % 11.2 %; Mean Corpuscular HGB Conc 29.4 g/dL (31.6-35.5); Mean Corpuscular Hemoglobin 29.3 pg (28.0-33.3); Mean Corpuscular Volume 99.6 fL (83.0-100.0); Mean Platelet Volume 10.4 fL (9.4-12.4); Monocytes % 11.5 %; Neutrophils # 6.3 K/mcL (1.6-8.9); Platelet Count 242 K/mcL (140-400); Red Blood Count 2.56 M/mcL (3.82-4.97); Red Cell Distribution Width 16.7 % (11.5-14.5); Segmented Neutrophils % 71.4 %; White Blood Count 8.8 K/mcL (4.3-11.1)
[2021-08-17 06:49] LABS: Potassium 4.3 mEq/L (3.5-5.1)
[2021-08-17] MEDS: Insulin LISPRO 300 UNITS/3 ML VIAL SUBQ SCH ×4 (07:32→20:31)
[2021-08-17] MEDS ORDERED: 0.9 % Sodium Chloride 250 ML IVC PRN (09:46)
[2021-08-17] MEDS ORDERED: *HR* Heparin 10,000 UNIT/10 ML VIAL IV PRN (09:46)
[2021-08-17] MEDS: Multivit/Ca/Min/Fe/FA 1 TAB TABLET PO SCH (10:50)
[2021-08-17] MEDS: Cholecalciferol (D-3) 1,000 UNIT (25MCG) TABLET PO SCH (10:51)
[2021-08-17] MEDS: Aspirin Enteric Coated 81 MG Tablet PO SCH (10:51)
[2021-08-17] MEDS: hydrALAZINE 10 MG TABLET PO SCH ×3 (10:57→20:31)
[2021-08-17] MEDS: carvediloL 25 MG TABLET PO SCH ×2 (10:57→16:26)
[2021-08-17] MEDS: Furosemide 40 MG/4 ML VIAL IVP SCH ×2 (10:57→16:28)
[2021-08-17] MEDS: Isosorbide MONOnitrate (24 HR) 60 MG TAB.ER.24H PO SCH (10:58)
[2021-08-17] MEDS: *HR* HYDROcodone/Acet 5/325 mg TABLET PO PRN (18:38)
[2021-08-17] MEDS: Gabapentin 100 MG CAPSULE PO SCH (20:31)
[2021-08-18 04:28] LABS: Basophils # 0.1 K/mcL (0.0-0.2); Basophils % 1.2 %; Eosinophils # 0.5 K/mcL (0.0-0.6); Eosinophils % 5.4 %; Hematocrit 26.9 % (35.3-44.9); Hemoglobin 7.8 g/dL (11.5-15.4); Immature Granulocytes % 0.3 % (0-4); Lymphocytes % 11.1 %; Mean Corpuscular Hemoglobin 28.9 pg (28.0-33.3); Mean Corpuscular Volume 99.6 fL (83.0-100.0); Mean Platelet Volume 10.1 fL (9.4-12.4); Monocytes # 1.1 K/mcL (0.0-1.3); Monocytes % 12.1 %; Neutrophils # 6.5 K/mcL (1.6-8.9); Platelet Count 247 K/mcL (140-400); Red Cell Distribution Width 16.6 % (11.5-14.5); Segmented Neutrophils % 69.9 %; White Blood Count 9.3 K/mcL (4.3-11.1)
[2021-08-18 04:29] LABS: Calcium 8.7 mg/dL (8.6-10.3); Potassium 3.9 mEq/L (3.5-5.1)
[2021-08-18] MEDS: Insulin LISPRO 300 UNITS/3 ML VIAL SUBQ SCH ×4 (07:24→20:41)
[2021-08-18] MEDS: Isosorbide MONOnitrate (24 HR) 60 MG TAB.ER.24H PO SCH (08:12)
[2021-08-18] MEDS: Aspirin Enteric Coated 81 MG Tablet PO SCH (08:13)
[2021-08-18] MEDS: Multivit/Ca/Min/Fe/FA 1 TAB TABLET PO SCH (08:13)
[2021-08-18] MEDS: carvediloL 25 MG TABLET PO SCH ×2 (08:13→17:20)
[2021-08-18] MEDS: hydrALAZINE 10 MG TABLET PO SCH ×3 (08:13→20:40)
[2021-08-18] MEDS: Furosemide 40 MG/4 ML VIAL IVP SCH ×2 (08:14→17:20)
[2021-08-18] MEDS: Cholecalciferol (D-3) 1,000 UNIT (25MCG) TABLET PO SCH (08:16)
[2021-08-18] MEDS: Ipratropium/Albuterol Neb 3 ML IH PRN ×2 (11:47→22:03)
[2021-08-18] MEDS: *HR* HYDROcodone/Acet 5/325 mg TABLET PO PRN (11:53)
[2021-08-18] MEDS: Gabapentin 100 MG CAPSULE PO SCH (20:40)
[2021-08-19 03:10] LABS: Basophils # 0.1 K/mcL (0.0-0.2); Basophils % 0.9 %; Eosinophils # 0.5 K/mcL (0.0-0.6); Eosinophils % 5.7 %; Hematocrit 25.2 % (35.3-44.9); Hemoglobin 7.4 g/dL (11.5-15.4); Immature Granulocytes % 0.4 % (0-4); Lymphocytes # 0.8 K/mcL (0.6-4.6); Lymphocytes % 10.6 %; Mean Corpuscular HGB Conc 29.4 g/dL (31.6-35.5); Mean Corpuscular Hemoglobin 29.4 pg (28.0-33.3); Mean Platelet Volume 9.9 fL (9.4-12.4); Monocytes # 0.9 K/mcL (0.0-1.3); Monocytes % 11.7 %; Neutrophils # 5.6 K/mcL (1.6-8.9); Platelet Count 190 K/mcL (140-400); Red Blood Count 2.52 M/mcL (3.82-4.97); Segmented Neutrophils % 70.7 %
[2021-08-19 03:32] LABS: Calcium 8.6 mg/dL (8.6-10.3); Potassium 4.1 mEq/L (3.5-5.1)
[2021-08-19] MEDS: Insulin LISPRO 300 UNITS/3 ML VIAL SUBQ SCH ×4 (07:48→19:49)
[2021-08-19] MEDS: Aspirin Enteric Coated 81 MG Tablet PO SCH (08:39)
[2021-08-19] MEDS: Isosorbide MONOnitrate (24 HR) 60 MG TAB.ER.24H PO SCH (08:40)
[2021-08-19] MEDS: carvediloL 25 MG TABLET PO SCH ×2 (08:40→17:05)
[2021-08-19] MEDS: hydrALAZINE 10 MG TABLET PO SCH ×3 (08:40→19:58)
[2021-08-19] MEDS: Cholecalciferol (D-3) 1,000 UNIT (25MCG) TABLET PO SCH (08:40)
[2021-08-19] MEDS: Multivit/Ca/Min/Fe/FA 1 TAB TABLET PO SCH (08:40)
[2021-08-19] MEDS: Furosemide 40 MG/4 ML VIAL IVP SCH ×2 (08:41→17:05)
[2021-08-19] MEDS: Ipratropium/Albuterol Neb 3 ML IH PRN ×2 (15:47→21:47)
[2021-08-19] MEDS: Melatonin 3 MG TABLET PO PRN (21:35)
[2021-08-19] MEDS: Gabapentin 100 MG CAPSULE PO SCH (21:35)
[2021-08-20 01:36] LABS: Basophils # 0.1 K/mcL (0.0-0.2); Basophils % 0.8 %; Eosinophils # 0.3 K/mcL (0.0-0.6); Eosinophils % 3.7 %; Hematocrit 24.7 % (35.3-44.9); Hemoglobin 7.5 g/dL (11.5-15.4); Immature Granulocytes % 0.2 % (0-4); Lymphocytes # 0.9 K/mcL (0.6-4.6); Lymphocytes % 10.3 %; Mean Corpuscular HGB Conc 30.4 g/dL (31.6-35.5); Mean Corpuscular Hemoglobin 29.9 pg (28.0-33.3); Mean Corpuscular Volume 98.4 fL (83.0-100.0); Mean Platelet Volume 10.4 fL (9.4-12.4); Monocytes # 0.9 K/mcL (0.0-1.3); Monocytes % 10.1 %; Neutrophils # 6.5 K/mcL (1.6-8.9); Platelet Count 206 K/mcL (140-400); Red Blood Count 2.51 M/mcL (3.82-4.97); Red Cell Distribution Width 15.9 % (11.5-14.5); Segmented Neutrophils % 74.9 %; White Blood Count 8.6 K/mcL (4.3-11.1)
[2021-08-20 01:53] LABS: Calcium 8.6 mg/dL (8.6-10.3); Potassium 4.5 mEq/L (3.5-5.1)
[2021-08-20] MEDS: Insulin LISPRO 300 UNITS/3 ML VIAL SUBQ SCH ×4 (07:20→20:24)
[2021-08-20] MEDS ORDERED: 0.9 % Sodium Chloride 250 ML IVC PRN (08:33)
[2021-08-20] MEDS ORDERED: *HR* Heparin 10,000 UNIT/10 ML VIAL IV PRN (08:33)
[2021-08-20] MEDS ORDERED: 0.9 % Sodium Chloride 1,000 ML PRIME SCH (08:45)
[2021-08-20] MEDS ORDERED: Heparin 1,000 UNITS/500 mL 500 ML ONE (09:19)
[2021-08-20] MEDS: Furosemide 40 MG/4 ML VIAL IVP SCH ×2 (09:24→17:16)
[2021-08-20] MEDS: Cholecalciferol (D-3) 1,000 UNIT (25MCG) TABLET PO SCH (09:24)
[2021-08-20] MEDS: hydrALAZINE 10 MG TABLET PO SCH ×3 (09:25→20:23)
[2021-08-20] MEDS: Multivit/Ca/Min/Fe/FA 1 TAB TABLET PO SCH (09:25)
[2021-08-20] MEDS: Ipratropium/Albuterol Neb 3 ML IH PRN (11:06)
[2021-08-20] MEDS: Isosorbide MONOnitrate (24 HR) 60 MG TAB.ER.24H PO SCH (12:28)
[2021-08-20] MEDS: carvediloL 25 MG TABLET PO SCH ×2 (12:28→17:16)
[2021-08-20] MEDS ORDERED: Lidocaine/EPI 1:100k 1% 50 ML VIAL ONE (13:08)
[2021-08-20] MEDS ORDERED: Heparin 1,000 UNITS/500 mL 0 ML ONE (13:08)
[2021-08-20] MEDS ORDERED: *HR* Midazolam HCl 2 MG/2 ML VIAL IVP ONE (13:39)
[2021-08-20] MEDS ORDERED: ceFAZolin 1,000 MG in 0.9 % Sodium Chloride Mini Bag 100 ML IVPB SCH (13:39)
[2021-08-20] MEDS ORDERED: *HR* FentaNYL (PF) 100 MCG/2 ML VIAL IVP ONE (13:39)
[2021-08-20] MEDS ORDERED: 0.9 % Sodium Chloride 500 ML ONE (13:54)
[2021-08-20] MEDS ORDERED: *HR* Heparin 5,000 UNIT/ML VIAL ONE (14:03)
[2021-08-20] MEDS: Gabapentin 100 MG CAPSULE PO SCH (20:23)
[2021-08-21 06:30] LABS: Basophils # 0.1 K/mcL (0.0-0.2); Basophils % 1.2 %; Eosinophils # 0.3 K/mcL (0.0-0.6); Eosinophils % 3.8 %; Hematocrit 26.4 % (35.3-44.9); Immature Granulocytes % 0.3 % (0-4); Lymphocytes # 0.9 K/mcL (0.6-4.6); Lymphocytes % 9.9 %; Mean Corpuscular HGB Conc 30.3 g/dL (31.6-35.5); Mean Corpuscular Hemoglobin 29.5 pg (28.0-33.3); Mean Corpuscular Volume 97.4 fL (83.0-100.0); Mean Platelet Volume 10.4 fL (9.4-12.4); Monocytes # 0.9 K/mcL (0.0-1.3); Monocytes % 10.5 %; Neutrophils # 6.4 K/mcL (1.6-8.9); Platelet Count 226 K/mcL (140-400); Red Blood Count 2.71 M/mcL (3.82-4.97); Segmented Neutrophils % 74.3 %; White Blood Count 8.7 K/mcL (4.3-11.1)
[2021-08-21 06:50] LABS: Calcium 8.5 mg/dL (8.6-10.3); Potassium 3.9 mEq/L (3.5-5.1)
[2021-08-21] MEDS: Insulin LISPRO 300 UNITS/3 ML VIAL SUBQ SCH ×3 (08:00→15:44)
[2021-08-21] MEDS: Furosemide 40 MG/4 ML VIAL IVP SCH ×2 (08:40→16:13)
[2021-08-21] MEDS: carvediloL 25 MG TABLET PO SCH ×2 (08:41→16:15)
[2021-08-21] MEDS: hydrALAZINE 10 MG TABLET PO SCH ×2 (08:41→16:15)
[2021-08-21] MEDS: Cholecalciferol (D-3) 1,000 UNIT (25MCG) TABLET PO SCH (08:41)
[2021-08-21] MEDS: Isosorbide MONOnitrate (24 HR) 60 MG TAB.ER.24H PO SCH (08:41)
[2021-08-21] MEDS: Multivit/Ca/Min/Fe/FA 1 TAB TABLET PO SCH (08:41)
[2021-08-21] MEDS: *HR* HYDROcodone/Acet 5/325 mg TABLET PO PRN (09:02)
[2021-08-21 12:38] LABS: Influenza A PCR Negative (Negative); Influenza B PCR Negative (Negative); Resp. Syncytial Virus PCR Negative (Negative)
[2021-08-21 12:51] LABS: SARS-CoV-2 by PCR (In House) Negative (Negative)
[2021-08-21 15:34] VITALS: BP 104/62; PULSE 97; TEMP 98.1; O2SAT 90
== END 2021-08-21 20:30 | DRG 280 ==
LOC: 2ANU → SUATTDRO 09:41
PROVIDERS: ADMIT Internal Medicine; ATTEND Family Medicine
PROC: IRPERMA (2021-08-20 12:00)

== ENCOUNTER 2021-12-31 23:47 | Inpatient (IN) ==
[2022-01-01 01:59] LABS: Basophils # 0.1 K/mcL (0.0-0.2); Basophils % 1.5 %; Eosinophils # 0.3 K/mcL (0.0-0.6); Eosinophils % 3.4 %; Hematocrit 34.8 % (35.3-44.9); Hemoglobin 10.4 g/dL (11.5-15.4); Immature Granulocytes % 0.4 % (0-4); Lymphocytes # 0.8 K/mcL (0.6-4.6); Lymphocytes % 9.1 %; Mean Corpuscular HGB Conc 29.9 g/dL (31.6-35.5); Mean Corpuscular Hemoglobin 27.7 pg (28.0-33.3); Mean Corpuscular Volume 92.8 fL (83.0-100.0); Mean Platelet Volume 10.4 fL (9.4-12.4); Monocytes # 0.8 K/mcL (0.0-1.3); Monocytes % 9.3 %; Neutrophils # 6.5 K/mcL (1.6-8.9); Platelet Count 274 K/mcL (140-400); Red Blood Count 3.75 M/mcL (3.82-4.97); Red Cell Distribution Width 17.9 % (11.5-14.5); Segmented Neutrophils % 76.3 %; White Blood Count 8.5 K/mcL (4.3-11.1)
[2022-01-01 02:06] LABS: INR 1.6; Prothrombin Time 17.6 Seconds (9.4-12.1)
[2022-01-01 02:09] LABS: Activated Partial Thrombo Time 41.5 Seconds (26.0-36.0)
[2022-01-01 02:14] LABS: Albumin 3.6 g/dL (3.5-5.7); Albumin/Globulin Ratio 1.1 (1.1-2.2); Bilirubin,Total 1.4 mg/dL (0.3-1.0); Calcium 9.8 mg/dL (8.6-10.3); Globulin 3.2 g/dL (2.4-3.5); Potassium 4.5 mEq/L (3.5-5.1); Total Protein 6.8 g/dL (6.4-8.9)
[2022-01-01 04:07] LABS: Hematocrit 31.7 % (35.3-44.9); Hemoglobin 9.4 g/dL (11.5-15.4)
[2022-01-01] MEDS ORDERED: Naloxone 0.4 MG/ML INJ IVP PRN (04:48)
[2022-01-01] MEDS ORDERED: Ondansetron ODT 4 MG TAB.RAPDIS SL PRN (04:48)
[2022-01-01] MEDS ORDERED: Melatonin 3 MG TABLET PO PRN (04:48)
[2022-01-01] MEDS ORDERED: Dextrose Gel 15 GM/37.5 ML TUBE PO PRN ×2 (05:19)
[2022-01-01] MEDS ORDERED: *HR* Dextrose 50 % in Water (Syg) 50 ML SYRINGE IVP PRN (05:19)
[2022-01-01] MEDS ORDERED: D5% in Water 1,000 ML IVC PRN (05:19)
[2022-01-01] MEDS ORDERED: Insulin LISPRO 300 UNITS/3 ML VIAL SUBQ SCH (07:30)
[2022-01-01] MEDS ORDERED: 0.9 % Sodium Chloride 250 ML IVC PRN (09:58)
[2022-01-01] MEDS ORDERED: *HR* Heparin 10,000 UNIT/10 ML VIAL IV PRN (09:58)
[2022-01-01] MEDS ORDERED: 0.9 % Sodium Chloride 2,000 ML PRIME SCH (10:00)
[2022-01-01 10:18] LABS: Hepatitis B Surface Antibody < 3.10 mIU/mL
[2022-01-01 10:29] LABS: Hepatitis B Surface Antigen Nonreactive (Nonreactive)
[2022-01-01 11:48] LABS: Hematocrit 31.1 % (35.3-44.9); Hemoglobin 9.5 g/dL (11.5-15.4)
[2022-01-01] MEDS: Insulin LISPRO 300 UNITS/3 ML VIAL SUBQ SCH ×2 (13:27→17:55)
[2022-01-01] MEDS ORDERED: *HR* Alteplase (Cathflo) 2 MG VIAL IVP ONE (15:35)
[2022-01-02] MEDS: Insulin LISPRO 300 UNITS/3 ML VIAL SUBQ SCH ×3 (00:17→18:36)
[2022-01-02 03:47] LABS: Basophils # 0.1 K/mcL (0.0-0.2); Eosinophils # 0.1 K/mcL (0.0-0.6); Eosinophils % 1.3 %; Hematocrit 31.9 % (35.3-44.9); Hemoglobin 9.6 g/dL (11.5-15.4); Immature Granulocytes % 0.3 % (0-4); Lymphocytes # 0.7 K/mcL (0.6-4.6); Lymphocytes % 9.9 %; Mean Corpuscular HGB Conc 30.1 g/dL (31.6-35.5); Mean Corpuscular Hemoglobin 28.2 pg (28.0-33.3); Mean Corpuscular Volume 93.5 fL (83.0-100.0); Mean Platelet Volume 10.1 fL (9.4-12.4); Monocytes # 0.9 K/mcL (0.0-1.3); Monocytes % 13.2 %; Neutrophils # 5.2 K/mcL (1.6-8.9); Platelet Count 217 K/mcL (140-400); Red Blood Count 3.41 M/mcL (3.82-4.97); Red Cell Distribution Width 18.1 % (11.5-14.5); Segmented Neutrophils % 74.3 %
[2022-01-02 04:04] LABS: Calcium 8.8 mg/dL (8.6-10.3); Magnesium 1.8 mg/dL (1.6-2.6); Phosphorous 2.3 mg/dL (2.7-4.5); Potassium 4.3 mEq/L (3.5-5.1)
[2022-01-02] MEDS ORDERED: Heparin 1,000 UNITS/500 mL 500 ML ONE (10:23)
[2022-01-02] MEDS ORDERED: *HR* Heparin 5,000 UNIT/ML VIAL ONE (10:40)
[2022-01-02] MEDS ORDERED: CeFAZolin 2,000 MG/120 ML BAG IVPB ONE (11:00)
[2022-01-02] MEDS ORDERED: hydrOXYzine pamoate 25 MG CAPSULE PO PRN (13:16)
[2022-01-02] MEDS: Aspirin Enteric Coated 81 MG Tablet PO SCH (18:34)
[2022-01-02] MEDS: tiZANidine 4 MG TABLET PO PRN (18:34)
[2022-01-02] MEDS: Renal Vitamin 1 CAP CAPSULE PO SCH (18:34)
[2022-01-02] MEDS: carvediloL 25 MG TABLET PO SCH (18:38)
[2022-01-02] MEDS: Gabapentin 100 MG CAPSULE PO SCH (22:02)
[2022-01-02] MEDS: Melatonin 3 MG TABLET PO PRN (22:02)
[2022-01-03] MEDS: Insulin LISPRO 300 UNITS/3 ML VIAL SUBQ SCH ×4 (01:17→17:05)
[2022-01-03 06:24] LABS: Basophils # 0.1 K/mcL (0.0-0.2); Basophils % 1.3 %; Eosinophils # 0.3 K/mcL (0.0-0.6); Eosinophils % 3.6 %; Hematocrit 31.5 % (35.3-44.9); Hemoglobin 9.4 g/dL (11.5-15.4); Immature Granulocytes % 0.4 % (0-4); Lymphocytes # 0.9 K/mcL (0.6-4.6); Lymphocytes % 13.1 %; Mean Corpuscular HGB Conc 29.8 g/dL (31.6-35.5); Mean Corpuscular Hemoglobin 28.3 pg (28.0-33.3); Mean Corpuscular Volume 94.9 fL (83.0-100.0); Mean Platelet Volume 9.8 fL (9.4-12.4); Monocytes % 14.1 %; Neutrophils # 4.7 K/mcL (1.6-8.9); Platelet Count 201 K/mcL (140-400); Red Blood Count 3.32 M/mcL (3.82-4.97); Red Cell Distribution Width 18.9 % (11.5-14.5); Segmented Neutrophils % 67.5 %
[2022-01-03 06:37] LABS: Calcium 9.2 mg/dL (8.6-10.3); Magnesium 1.9 mg/dL (1.6-2.6); Potassium 4.3 mEq/L (3.5-5.1)
[2022-01-03] MEDS ORDERED: *HR* Heparin 10,000 UNIT/10 ML VIAL IV PRN (07:25)
[2022-01-03] MEDS ORDERED: 0.9 % Sodium Chloride 250 ML IVC PRN (07:25)
[2022-01-03] MEDS: carvediloL 25 MG TABLET PO SCH ×2 (08:26→17:10)
[2022-01-03] MEDS: Isosorbide MONOnitrate (24 HR) 60 MG TAB.ER.24H PO SCH (08:26)
[2022-01-03] MEDS ORDERED: *HR* Metoprolol 5 MG/5 ML VIAL IVP PRN (13:56)
[2022-01-03] MEDS: Renal Vitamin 1 CAP CAPSULE PO SCH (17:10)
[2022-01-03] MEDS: Aspirin Enteric Coated 81 MG Tablet PO SCH (17:11)
[2022-01-03] MEDS ORDERED: Albumin 25% 25gram/100mL 25 GM/100 ML IV.SOLN IVPB ONE (22:00)
[2022-01-03] MEDS: Melatonin 3 MG TABLET PO PRN (23:29)
[2022-01-03] MEDS: Gabapentin 100 MG CAPSULE PO SCH (23:29)
[2022-01-04] MEDS: Insulin LISPRO 300 UNITS/3 ML VIAL SUBQ SCH ×5 (00:25→23:47)
[2022-01-04 01:41] LABS: Basophils # 0.1 K/mcL (0.0-0.2); Basophils % 0.8 %; Eosinophils # 0.3 K/mcL (0.0-0.6); Eosinophils % 3.6 %; Hematocrit 30.2 % (35.3-44.9); Hemoglobin 8.9 g/dL (11.5-15.4); Immature Granulocytes % 0.3 % (0-4); Lymphocytes # 0.8 K/mcL (0.6-4.6); Lymphocytes % 11.6 %; Mean Corpuscular HGB Conc 29.5 g/dL (31.6-35.5); Mean Corpuscular Hemoglobin 27.6 pg (28.0-33.3); Mean Corpuscular Volume 93.8 fL (83.0-100.0); Mean Platelet Volume 9.8 fL (9.4-12.4); Monocytes # 0.9 K/mcL (0.0-1.3); Monocytes % 12.2 %; Neutrophils # 5.1 K/mcL (1.6-8.9); Platelet Count 202 K/mcL (140-400); Red Blood Count 3.22 M/mcL (3.82-4.97); Red Cell Distribution Width 18.9 % (11.5-14.5); Segmented Neutrophils % 71.5 %; White Blood Count 7.1 K/mcL (4.3-11.1)
[2022-01-04 02:03] LABS: Calcium 8.9 mg/dL (8.6-10.3)
[2022-01-04] MEDS: carvediloL 25 MG TABLET PO SCH ×2 (09:40→15:22)
[2022-01-04] MEDS: Isosorbide MONOnitrate (24 HR) 60 MG TAB.ER.24H PO SCH (09:40)
[2022-01-04] MEDS ORDERED: *HR* HYDROcodone/Acet 5/325 mg TABLET PO ONE (14:35)
[2022-01-04] MEDS: Renal Vitamin 1 CAP CAPSULE PO SCH (18:46)
[2022-01-04] MEDS: Aspirin Enteric Coated 81 MG Tablet PO SCH (18:46)
[2022-01-04] MEDS: tiZANidine 4 MG TABLET PO PRN (20:25)
[2022-01-04] MEDS: Gabapentin 100 MG CAPSULE PO SCH (20:25)
[2022-01-04] MEDS: Melatonin 3 MG TABLET PO PRN (20:26)
[2022-01-05 03:22] VITALS: PULSE 119; O2SAT 97
[2022-01-05] MEDS: Insulin LISPRO 300 UNITS/3 ML VIAL SUBQ SCH ×2 (03:37→12:31)
[2022-01-05 05:17] LABS: Hematocrit 30.5 % (35.3-44.9); Hemoglobin 8.9 g/dL (11.5-15.4)
[2022-01-05 05:37] LABS: Calcium 8.7 mg/dL (8.6-10.3); Potassium 4.1 mEq/L (3.5-5.1)
[2022-01-05] MEDS ORDERED: *HR* Heparin 10,000 UNIT/10 ML VIAL IV PRN (08:37)
[2022-01-05] MEDS ORDERED: 0.9 % Sodium Chloride 250 ML IVC PRN (08:37)
[2022-01-05] MEDS: Isosorbide MONOnitrate (24 HR) 60 MG TAB.ER.24H PO SCH (08:38)
[2022-01-05] MEDS: carvediloL 25 MG TABLET PO SCH ×2 (08:38→17:06)
[2022-01-05] MEDS: *HR* Heparin 10,000 UNIT/10 ML VIAL IV PRN ×2 (09:55→13:24)
[2022-01-05] MEDS ORDERED: Albumin 25% 25gram/100mL 25 GM/100 ML IV.SOLN IVPB ONE (11:15)
[2022-01-05] MEDS ORDERED: Albumin 25% 25gram/100mL 25 GM/100 ML IV.SOLN IVC SCH (11:15)
[2022-01-05 11:34] VITALS: TEMP 98
[2022-01-05 14:02] VITALS: BP 104/59
== END 2022-01-05 18:46 | disposition hospice, home (50) | DRG 377 ==
LOC: EMEROOARM 23:47 → 2ANU 23:47 → SUATTDRO 01-01 04:53 → 2ANU 01-01 05:58
PROVIDERS: ADMIT Internal Medicine; ATTEND Family Medicine
PROC: IRPERMA (2022-01-02 10:00)